=== PATIENT | male | born 1975 | race Caucasian/White ===

== ENCOUNTER → 2019-08-11 | Outpatient (CLI) | payer MEDICARE ==
[2019-08-11 13:28] LABS: Basophils # (A) 0.1 k/uL (0-0.2); Basophils % (A) 1 %; Eosinophils # (A) 0.3 k/uL (0-0.7); Eosinophils % (A) 3 %; HCT 48.5 % (39.0-53.0); HGB 16.9 gm/dL (13.0-17.5); Lymphocytes # (A) 2.6 k/uL (1.0-4.8); Lymphocytes % (A) 26 %; MCH 31.8 pg (25.0-35.0); MCHC 34.9 g/dL (31.0-37.0); MCV 91.2 fL (80.0-100.0); Mean Platelet Volume 7.4; Monocytes # (A) 0.9 k/uL (0-1.0); Monocytes % (A) 9 %; Neutrophils # (A) 5.9 k/uL (1.3-7.7); Neutrophils % (A) 59 %; Platelet Count 265 k/uL (150-450); RBC 5.32 m/uL (4.30-5.90); RDW 13.4 % (11.5-15.5)
[2019-08-11 13:36] LABS: Appearance,Urine Clear (Clear); Bilirubin,Urine Negative (Negative); Blood,Urine Negative (Negative); Color,Urine Yellow; Glucose,Urine (UA) Negative (Negative); Ketones,Urine Negative (Negative); Leukocyte Esterase,Urine Negative (Negative); Nitrite,Urine Negative (Negative); Protein,Urine Negative (Negative); Specific Gravity,Urine 1.009 (1.001-1.035)
--- NOTE | 2019-08-11 13:36 | XR ---
EXAMINATION TYPE: XR chest 2V DATE OF EXAM: 08/11/2019 COMPARISON: None HISTORY: 44-year-old male Z01.818, presurgical for a neck fusion TECHNIQUE: Frontal and lateral views FINDINGS: The cardiomediastinal silhouette, aorta, and pulmonary vasculature are within normal limits. Lungs an d pleural spaces are clear. IMPRESSION: No acute cardiopulmonary process.
[2019-08-11 13:50] LABS: African American GFR (CKD) >90 (>60 ml/min/1.73 sqM); Anion Gap 5 mmol/L; Blood Urea Nitrogen 9 mg/dL (9-20); Calcium 9.1 mg/dL (8.4-10.2); Carbon Dioxide 26 mmol/L (22-30); Chloride 105 mmol/L (98-107); Glucose 88 mg/dL (74-99); Non-African American GFR(CKD) >90 (>60 ml/min/1.73 sqM); Potassium 4.6 mmol/L (3.5-5.1); Sodium 136 mmol/L (137-145)
[2019-08-11 13:59] LABS: INR 0.9 (<1.2); Partial Thromboplastin Time 23.8 sec (22.0-30.0); Prothrombin Time 9.5 sec (9.0-12.0)
== END | disposition home or self-care (01) ==
LOC: LABPAT 12:43
PROVIDERS: ATTEND Orthopaedic Surgery Orthopaedic Surgery of the Spine
DX: Z01.818 Encounter for other preprocedural examination (principal); M48.02 Spinal stenosis, cervical region; M47.12 Other spondylosis with myelopathy, cervical region; U07.1 COVID-19
CPT/HCPCS: 80048; 85025; 85610; 85730; 81003; 71046; 36415; U0003

== ENCOUNTER → 2019-08-16 | Day surgery (SDC) | payer MEDICARE, OTHER ==
[2019-08-09 14:35] VITALS: BMI 31.8
[~2019-08-16] MED LIST: ACETAMINOPHEN TAB 325 MG TAB PO PRN; BENZOCAINE/MENTHOL LOZENG 1 EACH LOZENGE MUCOUS MEM PRN; DEXAMETHASONE SOD PHOSPHATE 10 MG/ML 1 ML VIAL ONE; GELATIN SPONGE,ABSORB (LARGE) 1 EACH SPONGE TOPICAL ONE; GLYCOPYRROLATE 0.2 MG/ML 2 ML VIAL ONE; HYDROcodone/APAP 5-325MG 1 EACH TAB PO ONE; HYDROcodone/APAP 5-325MG 1 EACH TAB PO PRN; HYDROcodone/APAP 5-325MG 1 EACH TAB PO STA; HYDROmorphone (PF) 1 MG/ML ONE; HYDROmorphone 0.5 MG/0.5 ML SYRINGE IVP PRN; HYDROmorphone 1 MG/ML 1 ML SYRINGE IVP PRN; LACTATED RINGERS 1,000 ML IV ONE; LACTATED RINGERS 1,000 ML IV SCH; LIDOCAINE 0.5%-EPI 1:200,000 50 ML VIAL SQ ONE; LIDOCAINE 1% INJ 10MG/ML (20 ML MDV) ONE; LISINOPRIL 10 MG TAB PO SCH; MIDAZOLAM 2 MG/2 ML VIAL ONE; NEOSTIGMINE 1 MG/ML 10 ML VIAL ONE; NON FORMULARY DRUG (Omeprazole 20 MG) PO SCH; ONDANSETRON 4 MG/2 ML VIAL IVP ONE; ONDANSETRON 4 MG/2 ML VIAL IVP PRN; PAROXETINE HCL 40 MG PO SCH; PARoxetine 10 MG TAB PO SCH; PROPOFOL 10 MG/ML 20 ML VIAL IV ONE; ROCURONIUM BROMIDE 10 MG/ML 5 ML VIAL IV ONE; SODIUM CHLORIDE 0.9% 1,000 ML IV SCH; SODIUM CHLORIDE 0.9% IRRIGATIO 1,000 ML IRRIGATION ONE; SUCCINYLCHOLINE CHLORIDE 100 MG/5 ML SYR IV ONE; THROMBIN (BOVINE) 5,000 UNIT VIAL TOPICAL ONE; ePHEDrine SULFATE/0.9% NACL/PF 50 MG/5 ML SYRINGE IV ONE; fentaNYL (PF) 50 MCG/ML 2 ML AMP IV PRN; fentaNYL (PF) 50 MCG/ML 2 ML AMP ONE
--- NOTE | 2019-08-16 10:16 | P.OP ---
Date of Procedure: 08/16/19 Preoperative Diagnosis: Cervical myelopathy, upper extremity weakness, cervical stenosis C3 4 C4 5, disc herniation C3 4 C4 5, degenerative disc disease, upper extremity radiculopathy Postoperative Diagnosis: Same Anesthesia: GETA Pathology: none sent Condition: stable Disposition: PACU Description of Procedure: BRIEF OPERATIVE NOTE Preoperative Diagnosis:Cervical myelopathy, upper extremity weakness, cervical stenosis C3 4 C4 5, disc herniation C3 4 C4 5, degenerative disc disease, upper extremity radiculopathy Postoperative Diagnosis:Cervical myelopathy, upper extremity weakness, cervical stenosis C3 4 C4 5, disc herniation C3 4 C4 5, degenerative disc disease, upper extremity radiculopathy Procedure: Anterior cervical decompression and fusion C3 4 C4 5 Placement of interbody graft C3 4 C4 5 Application of anterior cervical plate C3 4 5 Surgeon: Dr. Cordero Director Business Integration: Hamlet Anderson is present throughout the entire the case persistence during positioning, dissection, exposure, visualization, and all crucial elements of the case as well as closure. Anesthesia: General anesthesia Estimated blood loss: Approximately 50 mL Complications: None apparent Components implanted: K2M [place] anterior cervical plate system with a plate and 6 screws with Vikos interbody allograft bone graft 1 mL of DBX bone putty supplement the bone graft Disposition: To recovery room in good stable condition. OPERATIVE INDICATIONS The patient has had long-standing issues in their neck and upper extremities. He's been having worsening despite conservative treatment. He is noticing weakness in his upper extremities with his radiculopathy. He was worse on the right than the left. He was found to have significant stenosis with disc herniation at C3 4 and C4 5 on his MRI which quite well with his neck and upper extremity symptoms. He is having trouble with his regular activities in any sort of work. The patient has been through conservative treatment. We discussed various treatment options including surgery, and the patient wishes to proceed with surgery We discussed the risk, patient's alternatives and benefits of surgery including but not limited to, risk of bleeding risk of infection, risk of need for further surgery, risk of decreased, loss of motion, muscle function, malunion nonunion, hardware failure, nerve damage, paralysis, heart attack, and . The patient was also advised that there is current pandemic and there is no way to completely guarantee lack of exposure and he understood this issue. OPERATIVE SUMMARY After discussing all the risks, patient alternatives and benefits at length, the patient elected to proceed with surgical intervention, signed informed consent, and presented for their procedure. The patient was seen and examined in the preoperative holding area and the surgical site was marked. The patient was given antibiotics and brought to the operating room. The patient was positioned on the operating room table in a supine position being careful to pad any bony prominences and pressure points. The patient was sedated and intubated by anesthesia in standard fashion. Once the airway and C- spine were stabilized the patient's arms were padded and tucked at her side, with her shoulders gently taped. The head was placed in a donut pad with the neck in good neutral alignment and position. We were careful to maintain the patient's cervical spine and good neutral alignment and position throughout. The patient was prepped and draped in a normal standard fashion. An appropriate timeout and keystone protocol performed. We were able to proceed with the surgery. The local wound area was infiltrated with local anesthetic. An incision was made transversely approximately 2-1/2 cm over the appropriate levels at C4. Dissection was taken down subcutaneously to the level of the platysma which was split in line with its fibers. Dissection was taken with a carotid approach, with the trachea and esophagus medial and the carotid sheath laterally. We dissected down to the anterior surface of the vertebral bodies. Intraoperative x-ray was taken which showed a marker at the appropriate level of C4 5. With the appropriate level positively confirmed, we were able to proceed with discectomy at the appropriate levels starting at C3 4 and then moving C4 5. All of the operative levels were exposed appropriately. The patient had all their twitches back, and there was no evidence of recurrent laryngeal issue. The wound was copiously irrigated and suctioned dry as had been done periodically throughout the case. At the appropriate level/levels, I established an annulotomy with an 11 blade scalpel. A discectomy was performed with a combination of pituitary rongeurs, curettes, a high-speed bur, and Kerrison rongeurs. The posterior longitudinal ligament was taken down as were any posterior osteophytes. Note was made of obvious posterior osteophytes and thickening of the ligamentum with disc herniation causing compression. I was able to remove posterior osteophytes and the posterior longitudinal ligament as well as out extruded disc herniations. This gave good central and bilateral foraminal decompression. There is no evidence of any dural tear or leak. The endplates were prepared with a high-speed bur. With the endplates in good parallel position, I was able to size for the appropriate size interbody graft. The wound was irrigated and suctioned dry the graft was prepared and malleted into position. It had good alignment and position with the anterior surface flush with the anterior surface of the vertebral bodies. This was done similarly the appropriate levels first at C3 4 and then at C4 5. With the grafts intact, I was able to measure and contour and appropriate sized plate. The plate was positioned at the midline over the appropriate levels at C3 4 and 5. Screw holes were established with a hand drill and drill guide. Screws were placed in good alignment and position with excellent bony purchase. They were seated under the locking device. The construct was checked and found to be stable. Intraoperative x-ray was taken which showed good alignment and position of the implants at the appropriate levels. There was no evidence of any dural tear or leak. Good hemostasis was maintained. The wound was copiously irrigated and suctioned dry as had been done periodically throughout the case. The platysma was closed with absorbable suture. The subcutaneous tissue was closed. The subcuticular tissue was closed with absorbable suture. The wound was cleaned and dried and dressed appropriately. A soft cervical collar was placed appropriately. The patient was woken up by anesthesia, extubated, transferred back gently to their hospital bed and brought to the recovery room in good stable condition. The patient will be admitted to the hospital for appropriate postoperative care, medical management and monitoring. We will continue to follow them closely about the postoperative course.
[2019-08-16 10:23] VITALS: TEMP 97.8
--- NOTE | 2019-08-16 10:25 | XR ---
EXAMINATION TYPE: XR cervical spine 1V DATE OF EXAM: 08/16/2019 COMPARISON: NONE HISTORY: Cervicalgia. TECHNIQUE: Cervical spine one view FINDINGS: Exam is for surgical planning and not for diagnostic purposes. Metallic pointer is localize d over the C4-C5 disc space. IMPRESSION: As above.
--- NOTE | 2019-08-16 10:42 | XR ---
Cervical spine HISTORY: Hardware placement Comparison to prior exam same date earlier time Single lateral view of the cervical spine Patient is status post anterior cervical fusion and discectomy at C3-C5, there are intervertebral spa cing blocks. Cervical vertebral bodies show preserved height and alignment. Endotracheal tube and ove rlying cardiac leads noted incidentally. There are overlying artifacts. IMPRESSION: Orthopedic follow-up.
[2019-08-16 11:58] VITALS: BP 134/81; PULSE 99; RESP 16
== END | disposition home or self-care (01) ==
LOC: OR 06:59
PROVIDERS: ATTEND Orthopaedic Surgery Orthopaedic Surgery of the Spine
DX: M50.01 Cervical disc disorder with myelopathy, high cervical region (principal); M50.11 Cervical disc disorder with radiculopathy, high cervical region; M48.02 Spinal stenosis, cervical region; M47.12 Other spondylosis with myelopathy, cervical region; M47.22 Other spondylosis with radiculopathy, cervical region; M43.12 Spondylolisthesis, cervical region; G56.03 Carpal tunnel syndrome, bilateral upper limbs; E66.3 Overweight; G43.909 Migraine, unspecified, not intractable, without status migrainosus; I10 Essential (primary) hypertension; F32.9 Major depressive disorder, single episode, unspecified; J44.9 Chronic obstructive pulmonary disease, unspecified; K21.9 Gastro-esophageal reflux disease without esophagitis; F41.9 Anxiety disorder, unspecified; R00.0 Tachycardia, unspecified; K08.109 Complete loss of teeth, unspecified cause, unspecified class; F17.200 Nicotine dependence, unspecified, uncomplicated; Z68.31 Body mass index [BMI] 31.0-31.9, adult; Z79.899 Other long term (current) drug therapy; Z79.52 Long term (current) use of systemic steroids; Z79.1 Long term (current) use of non-steroidal anti-inflammatories (NSAID); Z97.3 Presence of spectacles and contact lenses; Z87.19 Personal history of other diseases of the digestive system; Z79.891 Long term (current) use of opiate analgesic
CPT/HCPCS: 86900; 86901; 86850; 72020; 22551; 22552; 22845; 20931; 20930; C1713 ×2; C1762 ×2; J2250; J1100; J2710; J0690; J2405; J2001; J3010; J1170 ×2; J0330; J2704

== ENCOUNTER → 2020-08-28 | Outpatient (CLI) | payer OTHER ==
--- NOTE | 2020-08-29 03:43 | MR ---
EXAMINATION TYPE: MR lumbar spine wo con DATE OF EXAM: 08/28/2020 COMPARISON: None HISTORY: LBP, numbness in right leg x 2 years Multiplanar multiecho imaging of the lumbar spine was performed with no contrast. Lumbar vertebra have normal alignment. Disc spaces are fairly normal. There is no compression fractur e. There is developmentally adequate spinal canal. The lumbar neural foramina appear widely patent. T here is no evidence of any significant disc bulging or herniation. There is no evidence of focal bone destruction. The sacroiliac joints appear intact. There is no lumbar paraspinal mass. IMPRESSION: Negative MR scan of the lumbar spine. Spine appears normal for age. No spinal stenosis or lumbar disc herniation.
== END | disposition home or self-care (01) ==
LOC: RADMRIMAIN 19:32
PROVIDERS: ATTEND Orthopaedic Surgery Orthopaedic Surgery of the Spine
DX: M54.5 Low back pain (principal); R20.0 Anesthesia of skin
CPT/HCPCS: 72148

== ENCOUNTER → 2022-10-02 | Outpatient (CLI) | payer OTHER | END | disposition home or self-care (01) | LOC: LABPAT 07:57 | PROVIDERS: ATTEND Orthopaedic Surgery | DX: Z01.812 Encounter for preprocedural laboratory examination (principal); Z22.322 Carrier or suspected carrier of Methicillin resistant Staphylococcus aureus; G95.9 Disease of spinal cord, unspecified | CPT/HCPCS: 36415 ==

== ENCOUNTER → 2022-10-09 | Outpatient (CLI) | payer OTHER ==
--- NOTE | 2022-10-12 18:14 | CT ---
EXAMINATION TYPE: CT cervical spine wo con CT DLP: 447.7 mGycm, Automated exposure control for dose reduction was used. DATE OF EXAM: 10/09/2022 4:20 PM COMPARISON: Cervical spine radiograph 10/12/2022 CLINICAL INDICATION:Male, 47 years old with history of M47.812 SPONDYLOSIS CERVICAL REGION,M43.22,M54 .2; [facility], Pre-surgical. Spondylosis cervical region. TECHNIQUE: Axial CT images from the skull base to the inferior aspect of T2 we obtained without intra venous contrast. Coronal and sagittal reformatted images were also reviewed. FINDINGS: Fracture: None. Osseous structures: Surgical changes from ACDF of C3-C5 with disc fusion cages. Hardware appears inta ct with appropriate alignment. Large anterior osteophyte bridging from the C6 vertebral body superior ly to the fusion hardware.. Vertebral alignment: Minimal grade 1 anterolisthesis of C2 on C3. Mild retrolisthesis of C5 on C6. Spinal canal/Neural Foramina: Small disc protrusion without significant central canal stenosis at C3- C4. Posterior disc osteophyte complex at C4-C5 resulting in mild central canal stenosis. There is sev ere left neural foraminal stenosis at this level due to uncovertebral joint hypertrophy. Posterior di sc osteophyte complex without significant central canal stenosis. No significant neural foraminal rhett nosis at this level. Neck soft tissues: Prevertebral soft tissues are within normal limits. Other: The airway is patent. Paraseptal and centrilobular emphysematous changes in the bilateral apic es. IMPRESSION: 1. No evidence of cervical spine fracture. 2. Mild multilevel degenerative disc disease. This is most pronounced at C4-C5 3. Postsurgical changes from ACDF C3-C5. Hardware appears intact. 4. COPD changes.
== END | disposition home or self-care (01) ==
LOC: RADCTMAIN 15:46
PROVIDERS: ATTEND Orthopaedic Surgery
DX: M50.321 Other cervical disc degeneration at C4-C5 level (principal); M47.812 Spondylosis without myelopathy or radiculopathy, cervical region; M43.22 Fusion of spine, cervical region; J44.9 Chronic obstructive pulmonary disease, unspecified
CPT/HCPCS: 72125

== ENCOUNTER 2022-10-12 07:40 | Inpatient (IN) | payer OTHER ==
--- NOTE | 2022-10-12 06:21 | P.HPOR ---
History of Present Illness H&P Date: 10/02/22 .D:Date: 10/02/22 : 12:42pm .T:Title: *[facility]... COPY... Date of :[birth year] R14 Allergies: Age: 47 year Height: 5'6" Weight: 188 lbs BP:/ BMI: 30.34 kg/m2 Occupation: Maintenance VAS: 6 CHIEF COMPLAINT: Cervical pain DOI: Chronic DOS: 07/2019 C3-[address] Cordero Duration of current treatment regiment:1 year HISTORY : Xrays New xrays taken in office Trauma or injury No Work-Related No Pain description Burning, sharp, throbbing , increasing . Location Posterior Patient notes that their pain radiates to bilateral upper extremities Activity Modification Yes Hand Dominance Left TREATMENTS COMPLETED: 6 weeks of PT completed? Month and Year of last PT date? No Physician directed home exercise completed? Patient has trialed the physician directed home exercise program 20m/day x3days/week without relief of their symptoms. Medications Yes;List: Flexeril Alternative interventions Chiropractic:No Massage therapy:Yes R.I.C.E:Yes Brace:No Injections Yes How many? 1 Did they help?No RFA:No SUBJECTIVE: Mr. Colunga returns to the office for a pre-operative appointment for his C2-T2 posterior cervical decompression and fusion. Since last visit patient reports he has had no changes to his symptoms. Patient continues to experience a burning and shooting type pain throughout the neck. In addition to his cervical pain he also continues to experience radiating pain down into the bilateral upper extremities, associated with numbness and tingling. The patient states that his right arm symptoms are more severe than the left at this time. Patient is still experiencing pressure headaches. Mr. Colunga's symptoms are exacerbated with any stretching of the upper extremities or over head activity, and due to this he notes that it is increasingly difficult for him to complete many of his daily tasks. The patient is having severe sleep disturbances as well. The patient states that his current symptoms are starting to significantly affect his overall quality of life. Regarding treatments, the patient has previously trialed physician directed home exercise, massage therapy, rest, at home ice/heat therapies, and epidural steroid injections within the lumbar spine. The patient reports that he has not experienced any significant or sustained relief from any conservative treatment efforts thus far. For their symptoms, the patient has been taking Flexeril. The patient experiences no relief when taking Flexeril. Otherwise the patient denies any f/c/sob/cp and ambulates independently today. HPI: Mr. Colunga returns to the office on 07/31/22 for a re-check on his neck pain. The patient continues to experience a burning and shooting type pain throughout the neck that has been ongoing for 2 years with an onset after his C3-[address] Cordero in 2019. The patient states that the first two years after his procedure he felt improvement, but his neck pain has gradually worsened following that time. In addition to his cervical pain he also experiences radiating pain down into the bilateral upper extremities, associated with numbness and tingling. The patient states that his right arm symptoms are more severe than the left at this time. Patient also reports an increase in pressure headaches since his last in office appointment on 07/03/2022. Overall the patient states that, other than the pressure headaches, his symptoms have remained relatively stable since his last in office appointment approximately 1 month ago. Mr. Colunga's symptoms are exacerbated with any stretching of the upper extremities or over head activity, and due to this he notes that it is increasingly difficult for him to complete many of his daily tasks. The patient is having severe sleep disturbances as well. The patient states that his current symptoms are starting to significantly affect his overall quality of life. Regarding treatments, the patient has previously trialed physician directed home exercise, massage therapy, rest, at home ice/heat therapies, and epidural steroid injections within the lumbar spine. The patient reports that he has not experienced any significant or sustained relief from any conservative treatment efforts thus far. For their symptoms, the patient has been taking Flexeril and ALA. The patient experiences no relief when taking Flexeril, and some relief when taking ALA. Otherwise the patient denies any f/c/sob/cp and ambulates independently today. Mr. Colunga presents to the office on 07/03/22 for an evaluation of their cervical pain. Patient reports a increased burning, shooting, stabbing cervical pain ongoing for 2 years with an onset after his C3-C5 ACDF performed by Dr. Cordero in 2019. Patient states the first two years after procedure he felt he was getting better. Patient reports he did follow through with post-op appointments, but did not feel he was being heard when he felt his symptoms started increasing again. In addition to their cervical pain, they do report that it radiates into the bilateral upper extremities, associated with numbness and tingling. Patient also reports an increase in pressure headaches, scalp pain, and foggy thinking. Patient states his aunt has MS and he believes he is going to need to be worked up as well. Overall the patient has seen a progressive increase in symptoms since their onset. Mr. Colunga symptoms are exacerbated with any stretching of his upper extremities or over head activity, due to this they notes that it is increasingly difficult for Mr. Colunga to complete many of their daily tasks. Patient is having severe sleep disturbances as well due to their ongoing pain and associated symptoms. Regarding treatments, the patient has previously trialed the above listed modalities. Patient denies trialing any other modalities at this time. For their symptoms, the patient has been taking Tylenol and THC. Otherwise the patient denies any f/c/sob/cp and ambulates indepe ndently. The patients' past social, medical, family, surgical history, as well as review of systems, have been reviewed. Please refer to the Neurosurgery History and Physical form that has been scanned in to our electronic medical record system. 14 points review of systems completed and as stated in HPI, all other systems reviewed are negative. Social History:Reviewed, see appropriate section of the chart for details. P3 Family History:Reviewed, see appropriate section of the chart for details. P2 Past Medical History:Reviewed, see appropriate section of the chart for details. Z3Ormvuvc Medications: Rx:cyclobenzaprine 5 mg tablet Ref: 0 P1 PHYSICAL EXAMINATION: General:Awake, alert, appropriate for age, in no acute distress. HEENT:No unusual neck masses around region of lateral neck triangle, thyroid, supraclavicular groove Heart:Regular rate and rhythm, normal S1, S2 and no murmur/gallop. Lungs:Clear to auscultation bilaterally with no use of accessory muscles. Extremities:Skin warm and dry without acute lesions, coloration, temperature, skin intact, no tenderness or erythema Integument: Hairy patches:ABSENT Dorsal skin dimples:ABSENT Cafe au lait spots:ABSENT Surgical incisions:well healed cervical Palpation: Please see Pain drawing on Intake sheet for further detail. Midline spinal tenderness: No E6 Cervical Tenderness: yes E6 Paralumbar tenderness: No E6 Parathoracic tenderness: No E6 Buttocks tenderness: No E6 Sacroilliac Tenderness: No POSTURAL and MUSCULO-SKELETAL EVALUATION: Coronal Balance:NEUTRAL Recumbent testing:Patient isable to lay flat on back Sagittal Balance:NEUTRAL Shoulder Profile:LEVEL Pelvic Girdle:LEVEL Neck ROM:RESTRICTED Lumbar ROM:UNRESTRICTED Shoulder ROM:Symmetrical Hip ROM:Symmetrical Knee ROM:Symmetrical Hands:Normal appearance, symmetrical Feet:Normal appearance, Symmetrical VASCULAR STATUS : LEFT RIGHT Wrist Pulses INTACT INTACT Pedal Pulses (Dors. pedis & post.tibialis) INTACT INTACT Color NORMAL NORMAL Edema Absent Absent NEUROLOGIC EXAMINATION: Mental Status:Awake and alert, fully oriented, with normal attention, concentration and memory, and fluent, appropriate speech. Cranial Nerves: I: Olfactory not tested. II: Visual acuity normal, no visual field deficit noted with confrontation. III,IV: Normal pupillary reflexes & intact extraocular movements without nystagmus. V,: Intact symmetrical facial sensation. VII: Intact symmetrical facial motor movement VIII: Hearing intact. IX,X: Intact gag, swallow, & normal voice. XI: Sternocleidomastoid, trapezius function intact. XII: Tongue midline with normal movements. L'hermitte's Sign: Negative / absent Spurling'Sign: Absent bilaterally. Cubital percussion test: Absent bilaterally. Laurent-Tinel sign - Carpal region: Absent bilaterally. Straight Leg Raising: Absent bilaterally. Crossed straight leg raise: negative O8 MOTOR EXAM (0-5/5, N/T Muscle appearance: Symmetrical, without signs of atrophy or dystrophy UPPER EXTREMITY RIGHT LEFT Shoulder Abduction 4/5 4/5 Biceps 4/5 4/5 Triceps 4/5 4/5 Wrist Extension 4/5 4/5 Hand Intrinsic 4/5 4/5 Accounts Payable Processor 4/5 4/5 Hand and finger dexterity intact bilaterally? yes Disdiadochokinesis examination negative bilaterally? yes LOWER EXTREMITY RIGHT LEFT Hip Flexion 5/5 5/5 Knee Extension 4/5 4/5 Knee Flexion 5/5 5/5 Dorsiflexion 5/5 5/5 Plantarflexion 5/5 5/5 EHL 5/5 5/5 FHL 5/5 5/5 Toe heel walk / heel-toe walk intact while maintaining satisfactory balance? yes Squatting/straightening w/o assistance to a min of 60 degree knee flexion? yes Single leg stance:Intact Trendelenburg sign negative bilaterally REFLEXES(0-4/2, NT)Upper ExtremityLower Extremity Right 3 2 Left 3 2 Pathological Reflexes RIGHT LEFT Laurent's PRESENT Absent Clonus Absent Absent Babinski Absent Absent Sensory system (0-4, N/T) Test type RU RICHARD RL LL Joint-Position 2 2 2 2 Vibration 2 2 2 2 Pain & LT sense 2 2 2 2 Dermatomal Deficit: Global Global None None Gait and Functional Evaluation: Ambulatory aids:Independent Romberg's test:Intact bilaterally Steady Gait RADIOGRAPHIC STUDIES: XRay Cervical multiview (Lateral, Flexion, Extension, AP, Oblique) [address] [facility] on 07/03/22: Reviewed with the patient today. Mild spondylitic changes with preserved alignment. Hardware noted from previous surgery C3-C5. Plate and screws are intact, no loosening or migration. Adjacent segment disease noted C5-C6. Left foraminal stenosis C3-C4. No acute osseous abnormalities. [facility] CervicalSpine: * Post surgical changes C3-5 with possible pseudoarthrosis C3-4. ASD C5-6 and C6-7 Stenosis moderate to severe, anterior and posterior No fracture No lesions IMPRESSION: It was my pleasure to have seen and examined Martinez. I reviewed the patient's clinical syndrome, physical findings, and imaging studies during the appointment today. It is my impression that the patient has a diagnosis of. 1. C2-T2 spondylosis and stenosis 2. 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 Possible pseudoarthrosis 4. Cervical myelopathy 5. S/P C3-5 ACDF I outlined the natural course history without intervention and various interventional options. PLAN: Based on my findings I suggest the following course of action: -CT of the neck w/o contrast for surgical planning -I discussed treatment options with the patient, including operative and non- operative options, and they have elected to proceed with the following surgical procedure: C2-T2 posterior cervical decompression and fusion The indications, risks, benefits, and alternatives to surgery were discussed with the patient and family at length. Specifically (but not limited to) the risks of infection, stiffness, recurrence of symptoms, need for revision surgery, local numbness, neurovascular injury, and blood clots were discussed. The patient's questions were answered. - I discussed with the patient that he will need to remain off of work 3 months post operation. Spine Surgery Risk Review Mr. Colunga is presenting for evaluation of neck pain. It was my pleasure to have seen and examined Mr. Colunga. In our visit today we have had a chance to go over subjective complaints, physical examination findings and treatments including the natural course history without intervention and various interventional options. The patients imaging demonstrates: XRay Cervical multiview (Lateral, Flexion, Extension, AP, Oblique) [address] [facility] on 07/03/22: Reviewed with the patient today. Mild spondylitic changes with preserved alignment. Hardware noted from previous surgery C3-C5. Plate and screws are intact, no loosening or migration. Adjacent segment disease noted C5-C6. Left foraminal stenosis C3-C4. No acute osseous abnormalities[facility] CervicalSpine: * Post surgical changes C3-5 with possible pseudoarthrosis C3-4. ASD C5-6 and C6-7 Stenosis moderate to severe, anterior and posterior No fracture No lesions On physical exam, Mr. Colunga demonstrates: continues to experience a burning and shooting type pain throughout the neck that has been ongoing for 2 years with an onset after his C3-[address] Cordero in 2019. The patient states that the first two years after his procedure he felt improvement, but his neck pain has gradually worsened following that time. In addition to his cervical pain he also experiences radiating pain down into the bilateral upper extremities, associated with numbness and tingling. The patient states that his right arm symptoms are more severe than the left at this time. Patient also reports an increase in pressure headaches since his last in office appointment on 07/03/2022. Overall the patient states that, other than the pressure headaches, his symptoms have remained relatively stable since his last in office appointment approximately 1 month ago. Mr. Colunga's symptoms are exacerbated with any stretching of the upper extremities or over head activity, and due to this he notes that it is increasingly difficult for him to complete many of his daily tasks. The patient is having severe sleep disturbances as well. The patient states that his current symptoms are starting to significantly affect his overall quality of life. I have explained to the patient that as their condition progresses it will cause further neurological deficits and eventual paralysis. Based on the patients imaging, physical exam, and the rapid progression and disabling nature of their symptoms, at this time I recommend surgery in the form of a: C2-T2 PCDF. I discussed the risk and benefits of this procedure at length with Mr. Colunga. The patient agreed to considered pursuing the procedure above mentioned . Prior to surgery, she should follow up with her PCP (Cardio, ID, IM etc) for clearance. Questions were invited and answered, and the patient wishes to proceed as outlined below. Currently, I am recommendin.C2-T2 PCDF 2.Follow up with PCP for surgical clearance 3.Review of surgical risks and benefits as well as an educational packet on the proposed surgical procedure. Risks: All surgical procedures come with inherent risks, including those related to positioning, anesthesia, intraoperative findings, and postoperative complications. It is important to understand that surgery does not come with any guarantee of a successful outcome as complications and adverse events are always possible. The patient was given a handout in office today discussing the surgical procedure and risks associated with the intervention, both of which were discussed with the patient. These risks include but are not limited to the following: * Experiencing same, different or even worse symptoms in back, neck, arms, or legs compared to before surgery. Requiring further surgery or other forms of treatment presently or at some time in the future at same or other levels of the intended spine surgery. On an extreme but fortunately relatively rare basis severe complication such as blindness, stroke, heart attack, temporary and/or permanent nerve injury, paralysis, coma, or may occur, sometimes without known explanation. Surgical complications may include but are not limited to risk of infection, fluid accumulation in the surgical dissection site, including a seroma or hematoma, that requires additional surgery, wound drainage, bleeding, new numbness or weakness, vision changes/loss, spinal fluid leakage, non-healing and/or infected incision, headaches, difficulty or inability to swallow, hoarseness, hemopneumothorax, pneumothorax, impotence, retrograde ejaculation, vaginal dryness; injury to nerves, spinal cord, blood vessels, lymphatics or other vital organs (i.e., bowel injury, injury to the great vessels); heterotopic bone formation; complications related to the hardware such as screws, rods, cages including misplaced hardware, device failure, instrumentation at the wrong spine level, hardware fracture/breakage, or hardware loosening; vertebral failure of the spinal column above or below the newly placed hardware; retained surgical instrumentations or devices and the need for further surgery. * Medical risks of the planned spine surgery include but are not limited to generalized Infections to the whole body or local areas outside of the surgical site (sepsis), heart attack, bleeding, anaphylaxis, meningitis, seizure, epilepsy, hearing loss, burn chakraborty, laceration of the head or other areas of the body, bruising, hypersensitivity of the skin, bladder over distension; allergic reaction; shoulder injury related to positioning; fat, blood and air clots to other areas of the body like heart, lungs, brain; failure of internal organs such as lungs, kidneys, liver and excessive bleeding. If blood transfusions are necessary, note that transfusions may cause intolerance reactions such as anaphylaxis or other complex reactions. Despite best efforts, the results of spine surgery might not heal in terms of bone, soft tissues such as skin, fascia, ligaments, and joints. Additionally, in order to achieve best possible results, spine surgery may be carried out beyond the initially planned levels and involve decompression, fusion including insertion of hardware at levels other than the original intended area of surgical interest change some portions of the procedure in order to ensure the best possible outcomes. With spine surgery and spinal fusion, there are different off label uses of instrumentation (devices, implants and hardware) as well as biological substances (bone morphogenic proteins, demineralized bone matrix) as well as using extra bone from allograft sources (i.e. cadaver bone) or autograft (iliac crest bone, ribs, or the spine itself). The patient has been given information about these practices and their inherent risks and benefits. [facility] is an educational center that serves as a training facility for neurosurgical and orthopedic [employer] and Nursing students. Physician assistants are medically trained surgical providers who function in the outpatient, inpatient, and operating room setting under the direct supervision of the attending surgeon. [facility] has multiple operating rooms with single and overlapping rooms running daily. They currently function under the required guidelines as produced by the [facility] with regards to the overlapping rooms and will continue to comply with changes to this policy as they occur. The requirements include and are complied with as follows: (1) the critical portions of the overlapping rooms will not occur at the same time, (2) the attending physician will be physically present during the critical portions of the procedure and immediately available during the entire case, and (3) a back-up attending is designated should the primary attending not be immediately available. The patient has had a chance to review all the listed information, has been given print outs detailing this information, and has had all his/her questions answered to their satisfaction. It was my pleasure to have seen and examined Mr. Colunga. In our visit today we have had a chance to go over my understanding of our patient's current condition, the natural course history without intervention and various interventional options. Questions were invited and answered, and the patient wishes to proceed as outlined above. I have seen and examined the patient for 25 minutes and we have spent more than 50% of the time in repeat and detailed counseling about the patient's condition, its natural course history with out and as much as can be predicted with surgery and re-review of various surgical treatment options. In conclusion, Mr. Colunga requested we proceed with the above suggested surgery and are willing to accept risks and limitations of the suggested surgery as nature of the disease process and our best attempts at treatment for the condition. Thank you again for allowing us to be part of your patient's care. Please don't hesitate to contact me if you have any further questions. Signed and authenticated by: [employer] P:\\\\ ppart\\\\Files\\\\[id number] \\d [facility]imally Invasive Spine Surgery [address] [facility], [address] [address] Follow-up: DEL Post procedure 1month 6wks 3 months 6 months 1 year Patient Education: (Informational booklet, instructions, etc) given at today's appointment: DEL Yes .ED:Patient Education: Y Medications Reviewed: YES In our visit today Mr. Colunga and I have had a chance to go over my understanding of the patient's current condition, the natural course history without interv ention and various interventional options. Questions were invited and answered, and the patient wishes to proceed as outlined above. I will be sure to keep you updated afterMrMalka Colunga returns here for further follow-up. Thank you again for your referral. Please do not hesitate to contact me if you have any further questions. Signed and authenticated by: LAMAR Maier [facility] [address], [place] [address] [place] [id number] This message is confidential, intended only for the named recipient(s) and may contain information that is privileged or exempt from disclosure under applicab le law. If you are not the intended recipient(s), you are notified that the dissemination, distribution or copying of this information is strictly prohibited. If you received this message in error, please notify the sender then delete this message. Patient verbalizes understanding of the information discussed. The above note was initiated by Rakesh Simmons, physician recording elementary assistant teacher for Dr. Selvin Hwang. This note has been reviewed by Dr. Hwang, who has made his personal changes and impressions for this document. CC: Carlos Marquis MD Past Medical History Past Medical History: COPD, GERD/Reflux, Hypertension, Musculoskeletal Disorder Additional Past Medical History / Comment(s): NOT TAKING MEDS FOR HYPERTENSION AND GERD. migraine headaches, numbness & tingling both arms & hands, pain up right side of neck into head History of Any Multi-Drug Resistant Organisms: None Reported Past Surgical History: No Surgical Hx Reported Additional Past Surgical History / Comment(s): 08/16/19 cervical fusion. pain procedures Past Anesthesia/Blood Transfusion Reactions: No Reported Reaction, Family History of Problems w/ Anesthesia Additional Past Anesthesia/Blood Transfusion Reaction / Comment(s): brother slow to wake up Past Psychological History: Anxiety Smoking Status: Current every day smoker Past Alcohol Use History: Rare Additional Past Alcohol Use History / Comment(s): 1ppd since teens Past Drug Use History: Marijuana Additional Drug Use History / Comment(s): occasional use - Past Family History Father Family Medical History: Cancer Medications and Allergies Home Medications Medication Instructions Recorded Confirmed Type Cyclobenzaprine [Flexeril] 5 mg PO HS 10/06/22 10/06/22 History Allergies Allergy/AdvReac Type Severity Reaction Status Date / Time No Known Allergies Allergy Verified 08/16/19 07:10 Physical Examination Osteopathic Statement: *. No significant issues noted on an osteopathic structural exam other than those noted in the History and Physical/Consult.
[~2022-10-12 07:40] MED LIST changes: -ACETAMINOPHEN TAB 325 MG TAB PO PRN; +ACETAMINOPHEN TAB 500 MG TAB PO PRN; -BENZOCAINE/MENTHOL LOZENG 1 EACH LOZENGE MUCOUS MEM PRN; -DEXAMETHASONE SOD PHOSPHATE 10 MG/ML 1 ML VIAL ONE; +GABAPENTIN 300 MG CAP PO PRN; -GELATIN SPONGE,ABSORB (LARGE) 1 EACH SPONGE TOPICAL ONE; -GLYCOPYRROLATE 0.2 MG/ML 2 ML VIAL ONE; -HYDROcodone/APAP 5-325MG 1 EACH TAB PO ONE; -HYDROcodone/APAP 5-325MG 1 EACH TAB PO PRN; -HYDROcodone/APAP 5-325MG 1 EACH TAB PO STA; -HYDROmorphone (PF) 1 MG/ML ONE; -HYDROmorphone 0.5 MG/0.5 ML SYRINGE IVP PRN; -HYDROmorphone 1 MG/ML 1 ML SYRINGE IVP PRN; -LACTATED RINGERS 1,000 ML IV ONE; -LACTATED RINGERS 1,000 ML IV SCH; -LIDOCAINE 0.5%-EPI 1:200,000 50 ML VIAL SQ ONE; -LIDOCAINE 1% INJ 10MG/ML (20 ML MDV) ONE; -LISINOPRIL 10 MG TAB PO SCH; -MIDAZOLAM 2 MG/2 ML VIAL ONE; -NEOSTIGMINE 1 MG/ML 10 ML VIAL ONE; -NON FORMULARY DRUG (Omeprazole 20 MG) PO SCH; -ONDANSETRON 4 MG/2 ML VIAL IVP ONE; -PAROXETINE HCL 40 MG PO SCH; -PARoxetine 10 MG TAB PO SCH; -PROPOFOL 10 MG/ML 20 ML VIAL IV ONE; -ROCURONIUM BROMIDE 10 MG/ML 5 ML VIAL IV ONE; -SODIUM CHLORIDE 0.9% 1,000 ML IV SCH; -SODIUM CHLORIDE 0.9% IRRIGATIO 1,000 ML IRRIGATION ONE; -SUCCINYLCHOLINE CHLORIDE 100 MG/5 ML SYR IV ONE; -THROMBIN (BOVINE) 5,000 UNIT VIAL TOPICAL ONE; +TRANEXAMIC 1,000 MG/100ML-NACL 1,000 MG in SALINE 1 100ML.BAG IVPB PRN; -ePHEDrine SULFATE/0.9% NACL/PF 50 MG/5 ML SYRINGE IV ONE; -fentaNYL (PF) 50 MCG/ML 2 ML AMP IV PRN; -fentaNYL (PF) 50 MCG/ML 2 ML AMP ONE
[2022-10-12] MEDS ORDERED: LIDOCAINE 1% (10MG/ML) FOR IV START INTRADERMA PRN (07:44)
[2022-10-12] MEDS ORDERED: ONDANSETRON 4 MG/2 ML VIAL IVP ONE (07:44)
[2022-10-12] MEDS ORDERED: droPERidol 5 MG/2 ML VIAL IVP PRN (07:44)
[2022-10-12] MEDS ORDERED: DEXAMETHASONE SOD PHOSPHATE 4 MG/ML 1 ML VIAL IV ONE (07:44)
[2022-10-12] MEDS: LACTATED RINGERS 1,000 ML IV SCH (08:41)
[2022-10-12] MEDS ORDERED: ROCURONIUM 10 MG/ML (5 ML VIAL) IV ONE (09:45)
[2022-10-12] MEDS ORDERED: MIDAZOLAM 2 MG/2 ML VIAL ONE (09:45)
[2022-10-12] MEDS ORDERED: fentaNYL (PF) 50 MCG/ML 2 ML AMP ONE (09:45)
[2022-10-12] MEDS ORDERED: PROPOFOL 10 MG/ML 20 ML VIAL IV ONE (09:45)
[2022-10-12] MEDS ORDERED: NEOSTIGMINE 1 MG/ML 10 ML VIAL ONE (09:45)
[2022-10-12] MEDS ORDERED: SUCCINYLCHOLINE CHLORIDE 200 MG/10 ML VIAL IV ONE (09:45)
[2022-10-12] MEDS ORDERED: LIDOCAINE 2% INJ 20 MG/ML (2 ML VIAL) ONE (09:45)
[2022-10-12] MEDS ORDERED: TRANEXAMIC 1,000 MG/100ML-NACL PREMIX BAG ONE (09:45)
[2022-10-12] MEDS ORDERED: GLYCOPYRROLATE 0.2 MG/ML 2 ML VIAL ONE (09:45)
[2022-10-12] MEDS ORDERED: KETAMINE 10 MG/ML 20 ML VIAL ONE (09:45)
[2022-10-12] MEDS ORDERED: LACTATED RINGERS 1,000 ML IV ONE ×2 (09:50→12:15)
[2022-10-12] MEDS ORDERED: GELATIN SPONGE,ABSORB (LARGE) 1 EACH SPONGE TOPICAL ONE (10:42)
[2022-10-12] MEDS ORDERED: GENTAMICIN 80 MG in SODIUM CHLORIDE 0.9% IRRIGATIO 3,000 ML IRRIGATION ONE (10:42)
[2022-10-12] MEDS ORDERED: ceFAZolin 3,000 MG in SODIUM CHLORIDE 0.9% IRRIGATIO 3,000 ML IRRIGATION ONE (10:42)
[2022-10-12] MEDS ORDERED: THROMBIN (BOVINE) 5,000 UNIT VIAL TOPICAL ONE (10:43)
[2022-10-12] MEDS ORDERED: VANCOMYCIN 1,000 MG VIAL MISCELLANE ONE ×2 (10:43)
[2022-10-12] MEDS ORDERED: HYDROcodone/APAP 5-325MG 1 EACH TAB PO PRN (13:16)
[2022-10-12] MEDS ORDERED: SENNOSIDES-DOCUSATE SODIUM 1 EACH TAB PO PRN (13:16)
[2022-10-12] MEDS ORDERED: HYDROmorphone 0.5 MG/0.5 ML SYRINGE IVP PRN (13:16)
[2022-10-12] MEDS ORDERED: MAGNESIUM HYDROXIDE 2,400 MG/30 ML CUP PO PRN (13:16)
--- NOTE | 2022-10-12 13:21 | P.OP ---
Date of Procedure: 10/12/22 Preoperative Diagnosis: 1. C2-3, C5-6, C6-7 SPONDYLOSIS, ADJACENT SEGMENT DISEASE S/P C3-5 ACDF 2. CERVICAL STENOSIS, MODERATE TO SEVERE 3. B/L UE RADICULOPATHY AND WEAKNESS 4. NECK PAIN Postoperative Diagnosis: 1. C2-3, C5-6, C6-7 SPONDYLOSIS, ADJACENT SEGMENT DISEASE S/P C3-5 ACDF 2. CERVICAL STENOSIS, MODERATE TO SEVERE 3. B/L UE RADICULOPATHY AND WEAKNESS 4. NECK PAIN Procedure(s) Performed: 1. C2-T1 POSTERIOLATERAL STABILIZED FUSION (22452, [id number]) 2. C2-T1 SEGMENTAL INSTRUMENTATION (31441) 3. C2-7 DECOMPRESSIVE LAMINECTOMY (94403, [id number]) USE OF IONM Implants: -JOANIE POSTERIOR CERVICAL SYSTEM -MAGNATOS Anesthesia: GETA Surgeon: Selvin Hwang Bellperson #1: Chevy Norris (WAS PRESENT AND ASSISTED WITH ALL ASPECTS OF THE CASE FROM POSITION TO CLOSURE) Estimated Blood Loss (ml): 150 IV fluids (ml): 1,000 Urine output (ml): 200 Pathology: none sent Condition: stable Disposition: PACU Indications for Procedure: Mr. Colunga is presenting for evaluation of neck pain. It was my pleasure to have seen and examined Mr. Colunga. In our visit today we have had a chance to go over subjective complaints, ph ysical examination findings and treatments including the natural course history without intervention and various interventional options. The patients imaging demonstrates: XRay Cervical multiview (Lateral, Flexion, Extension, AP, Oblique) 6 views taken at [facility] on 07/03/22: Reviewed with the patient today. Mild spondylitic changes with preserved alignment. Hardware noted from previous surgery C3-C5. Plate and screws are intact, no loosening or migration. Adjacent segment disease noted C5-C6. Left foraminal stenosis C3-C4. No acute osseous abnormalities. [facility]ine: * Post surgical changes C3-5 with possible pseudoarthrosis C3-4. ASD C5-6 and C6-7 Stenosis moderate to severe, anterior and posterior No fracture No lesions On physical exam, Mr. Colunga demonstrates: continues to experience a burning and shooting type pain throughout the neck that has been ongoing for 2 years with an onset after his C3-[address] Cordero in 2019. The patient states that the first two years after his procedure he felt improvement, but his neck pain has gradually worsened following that time. In addition to his cervical pain he also experiences radiating pain down into the bilateral upper extremities, associated with numbness and tingling. The patient states that his right arm symptoms are more severe than the left at this time. Patient also reports an increase in pressure headaches since his last in office appointment on 07/03/2022. Overall the patient states that, other than the pressure headac hes, his symptoms have remained relatively stable since his last in office appointment approximately 1 month ago. Mr. Colunga's symptoms are exacerbated with any stretching of the upper extremities or over head activity, and due to this he notes that it is increasingly difficult for him to complete many of his daily tasks. The patient is having severe sleep disturbances as well. The patient states that his current symptoms are starting to significantly affect his overall quality of life. I have explained to the patient that as their condition progresses it will cause further neurological deficits and eventual paralysis. Based on the patients imaging, physical exam, and the rapid progression and disabling nature of their symptoms, at this time I recommend surgery in the form of a: C2-T2 PCDF. I discussed the risk and benefits of this procedure at length with Mr. Colunga. The patient agreed to considered pursuing the procedure above mentioned . Prior to surgery, she should follow up with her PCP (Cardio, ID, IM etc) for clearance. Questions were invited and answered, and the patient wishes to proceed as outlined below. Currently, I am recommendin.C2-T2 PCDF Description of Procedure: C2-T1 DECOMPRESSION AND FUSION The patient was seen and examined in the preoperative area. All preoperative protocols were followed. Informed consent was obtained risks and benefits of the procedure were discussed at length. Risks including bleeding infection damage to the surrounding tissue and risk of reoperation were discussed with the patient. Risk of anesthesia up to and including was a discussed with the patient. These are outlined in the risk review. They were willing to accept these risks and all of the risks of surgery. The patient was given a weight- based dose of antibiotics in the form of 2 g Ancef. The patient was seen and evaluated by the anesthesia team who deemed them fit for surgery. The site was marked, the patient was willing to proceed with the procedure. The patient was transferred to the operative suite by the Department of anesthesia. They were then drifted off to sleep by the department anesthesia and GETA was performed. The patient tolerated this well. pre-positioning motors were obtained.Tineo in place from the floor. Once confirmation of lines and ventilation Granby head clamp was placed on the patient and secured and the patient was transferred to a [prone Checo table very carefully] with the Granby head of cytogenetics the head was secured and placed into an optimal position x- ray confirmed this position. Post-positioning motors remained stable. All bony prominences including wrists, elbows, axilla, chest, hips, and thighs, and feet were padded very well. Special attention was paid to the genitalia and these were padded accordingly. SCDs were placed on bilateral lower extremities and were connected. Arms were well padded and placed tucked at his side thumbs down. Shoulders were gently taped down to the table.. Once in position, again we confirmed good ventilation capabilities and that lines were running appropriately. The patient's posterior cervical spine was then exposed. 1010s were placed outlining the incision site. Standard alcohol was used to clean the incision site and allowed to dry. C-arm was used to biomark the patient and confirm level for incision which was marked with a skin marker. Operative briefing was performed with all teams and everyone in agreement to proceed. The patient was then prepped and draped in a normal sterile fashion. Timeout was then performed and all parties were in agreement with the procedure to be performed. Midline skin incision made over the previously biomarked area and dissection taken down midline to the SP of C2-T1. Subperiosteal dissection taken out over the lamina and lateral masses of C2-C7 and TVP of T1. Once exposure complete, wound was irrigated and c arm brought in for imaging. A penfield 4 was used to bluntly dissect the medial border of C2 pedicle and placed for guidance. C arm used and jae hole made for starting point. C2 pedicle was then drilled in 2mm increments to 20 mm using a ball tip feeler in between each drill session to make sure within the 4 sims with a good bottom. once this was accomplished a screw was selected and placed under lateral fluoroscopic guidance. Screw had good purchase. This was then repeated on the contralateral side. AP confirmed good placement of both screws. We then proceeded to the T1 screws bilaterally jae was used to remove the facet joint of C7 and to create a starting point for T1. Pedicle finder was then passed into T1 and imaging taken to confirm placement this was then removed and a tap placed ball-tipped probe was then placed and 4 sims of pedicle fell with good bottom. Screw was then measured and placed into T1. This is repeated on the contralateral side. The wound was then irrigated. Lateral mass screws were then drilled to 14 mm and placed at each level. Each had a good bite. Rods were then sized and selected and cut to length. They were bent accordingly and lordosis. There is secured into C2 bilaterally and then sequentially her diet reduced into T1. All set screws were placed and were then final tightened and the position. Laminectomy was then performed using Ronjair followed by jae bilateral laminotomies and laminectomy was performed using high-speed bur Kerrison Ronjair and up-biting curette. Motors were run before and after decompression and they remain stable. Good pulsations of the cord were noted after decompression. The wound was then copiously irrigated with 3 L of Ancef irrigation followed by 3 L of gentamicin irrigation followed by 3 L of normal sterile saline. Facet joints were drilled at each level to allow for fusion Surgicel was placed over the dura. MagnetOs were placed in the posterior lateral gutters along with Gricelda and DBM. This was impacted into position for fusion. 2 g of powdered bank was not placed deep within the wound and a deep drain was placed. A cross-link was placed and final tightened. We then proceeded with layered closure first in the deep fascia with #1 PDS then in the middle fascia with 0 Vicryl superficial fascia was closed with 2-0 Vicryl and skin closed with skin jay. The wound edges approximated very well. The wound was then cleaned and dressed sterilely with an operative foam dressing 4 x 4 and Tegaderm. The drain had good suction. The patient was placed in a hard cervical collar. The patient was transferred back to their hospital bed atraumatically. Walton head clamp was removed and pin sites were clear. [Drain continued to hold suction and were in good position]. Patient was then awakened and extubated by the department of anesthesia having tolerated the procedure very well with no complications. They were transferred to the postoperative care unit in stable condition.
--- NOTE | 2022-10-12 13:40 | P.CONS ---
History of Present Illness - Reason for Consult Consult date: 10/12/22 Medical Management Requesting physician: Selvin Hwang - History of Present Illness History of Presenting Illness: Patient is a very pleasant 47-year-old male with a past medical history of hypertension (no longer on any medications), COPD with continued nicotine dependence, GERD, cannabinoid use disorder, and osteoarthritis. He is currently admitted under orthospine surgery team with Dr. Hwang status post elective C2 through T12 posterior cervical decompression and fusion. We have been consulted for medical management throughout patient's hospitalization. Patient seen and fully evaluated at bedside. Hard cervical collar in place along with JEAN-PIERRE drain. Patient currently reports controlled postoperative pain at this time. He denies having any numbness/tingling/weakness in his upper or lower extremities. Patient reports he has had ice chips and water since surgical procedure and is tolerating well. Tineo catheter is in place. Patient denies having any postoperative nausea or vomiting, dizziness/lightheadedness, chest pain or palpitations, shortness of breath, or any other complaints at this time. Patient denies history of DVTs or PE in the past. Review of systems: Pertinent positives and negatives as discussed in HPI, a complete review of systems was performed and all other systems are negative. Physical exam: Vital signs reviewed and stable. General: Nontoxic, no distress and appears stated age. Derm: Skin warm and dry, normal coloration for ethnicity. Head: Atraumatic, normocephalic and symmetric. Hard cervical collar in place a long with JEAN-PIERRE drain. Eyes: EOMs intact, no lid lag, and anicteric sclera Mouth: no lip lesions, mucus membranes moist Cardiovascular: regular rate and rhythm with normal S1S2, no murmur, positive posterior tibial pulses bilaterally, and cap refill < 2 seconds. Lungs: Respirations even, regular, and unlabored on room air. Lungs slightly diminished bilaterally with soft upper expiratory wheezes, no rhonchi, no rales, no crackles. No accessory muscle usage. Abdominal: soft, nontender to palpation, no guarding, no appreciable organomegaly Ext: ROM intact. No gross muscle atrophy, no edema, no contractures Neuro: Speech clear, face symmetrical and CN II-XII grossly intact with no noted focal neuro deficits Psych: Alert and oriented to person, place, time, and situation. Appropriate and pleasant affect. Assessment and Plan of Care: Status post C2 through T12 posterior cervical decompression and fusion Management per primary admitting orthospine surgery team including DVT prophylaxis, pain management, PT/OT, and wound/dressing/drain management. Patient currently on DVT prophylaxis with SCDs. Order placed for morning CBC and CMP we will follow up on labs and replace abnormal values if indicated based upon these results. COPD with continued nicotine dependence -Patient placed on scheduled nebulizer treatments 3 times daily and as needed albuterol nebulizer treatments for shortness of breath and/or wheezing. -Patient counseled on smoking cessation. -Nicotine patch 21 mg daily. Hypertension -Patient with a history of hypertension and no longer antihypertensive medications. Blood pressures have been elevated 140s to 160s over 80s to 90s. Patient denies having any pain at this time. We will start patient on low-dose amlodipine 5 mg daily. Thank you for allowing us to participate in the care of this pleasant patient. Do not hesitate to contact us with questions. Someone can be reached from the [facility] group all hours of the day at [phone] or via [employer]. Patient was seen independently by Nurse Practitioner. This document was prepared using i[employer] dictation software. Please allow for errors in personnel analyst while rare they do occur. I reviewed the documentation as provided by the BUCK above, who is the original author of this note. I agree with the documented assessment and plan, with the following changes: none Past Medical History Past Medical History: COPD, GERD/Reflux, Hypertension, Musculoskeletal Disorder Additional Past Medical History / Comment(s): NOT TAKING MEDS FOR HYPERTENSION AND GERD. migraine headaches, numbness & tingling both arms & hands, pain up right side of neck into head History of Any Multi-Drug Resistant Organisms: None Reported Past Surgical History: No Surgical Hx Reported Additional Past Surgical History / Comment(s): 08/16/19 cervical fusion. pain procedures Past Anesthesia/Blood Transfusion Reactions: No Reported Reaction, Family History of Problems w/ Anesthesia Additional Past Anesthesia/Blood Transfusion Reaction / Comm: brother slow to wake up Past Psychological History: Anxiety Smoking Status: Current every day smoker Past Alcohol Use History: Rare Additional Past Alcohol Use History / Comment(s): 1ppd since teens Past Drug Use History: Marijuana Additional Drug Use History / Comment(s): occasional use - Past Family History Father Family Medical History: Cancer Medications and Allergies Home Medications Medication Instructions Recorded Confirmed Type Cyclobenzaprine [Flexeril] 5 mg PO HS 10/06/22 10/06/22 History Allergies Allergy/AdvReac Type Severity Reaction Status Date / Time No Known Allergies Allergy Verified 10/12/22 08:21 Physical Exam Osteopathic Statement: *. No significant issues noted on an osteopathic structural exam other than those noted in the History and Physical/Consult. Vitals: Vital Signs Temp Pulse Resp BP Pulse Ox 10/12/22 13:23 74 16 104/71 98 10/12/22 13:08 96.8 F L 56 L 16 99/52 97 10/12/22 08:23 98.0 F 77 16 126/77 100 Intake and Output 10/11/22 10/12/22 10/12/22 22:59 06:59 14:59 Intake Total 1252 Output Total 450 Balance 802 Intake: IV 1252 Output: Urine 300 Estimated Blood Loss 150 Other: Weight 76.8 kg
[2022-10-12] MEDS: HYDROmorphone 0.5 MG/0.5 ML SYRINGE IVP PRN ×4 (13:45→14:32)
--- NOTE | 2022-10-12 14:06 | XR ---
Intraoperative/procedural fluoroscopic services were provided for posterior cervical fusion. Total fl uoroscopy time is 1 minute with a total of 6 submitted images to PACS. Total DAP 3.1336 Gycm2. Charles jaime see the operative note for further details.
[2022-10-12] MEDS ORDERED: fentaNYL (PF) 50 MCG/ML 2 ML AMP IVP ONE (14:44)
[2022-10-12] MEDS ORDERED: IPRATROPIUM-ALBUTEROL 3 ML NEB INHALATION PRN (16:08)
[2022-10-12] MEDS: HYDROcodone/APAP 10-325MG 1 EACH TAB PO PRN (16:24)
[2022-10-12] MEDS: NICOTINE 21MG/24HR PATCH TRANSDERM SCH (16:25)
[2022-10-12] MEDS: ACETAMINOPHEN TAB 325 MG TAB PO SCH ×2 (17:41→23:18)
[2022-10-12] MEDS: IPRATROPIUM-ALBUTEROL 3 ML NEB INHALATION SCH (20:14)
[2022-10-12] MEDS: amLODIPine 5 MG TAB PO SCH (23:00)
[2022-10-12] MEDS: HYDROmorphone 1 MG/ML 1 ML SYRINGE IVP PRN (23:06)
[2022-10-13] MEDS: HYDROmorphone 1 MG/ML 1 ML SYRINGE IVP PRN (04:10)
[2022-10-13] MEDS ORDERED: ONDANSETRON 4 MG/2 ML VIAL IVP STA (04:21)
[2022-10-13] MEDS: ACETAMINOPHEN TAB 325 MG TAB PO SCH ×3 (06:21→17:30)
[2022-10-13] MEDS: IPRATROPIUM-ALBUTEROL 3 ML NEB INHALATION SCH ×3 (08:03→19:49)
[2022-10-13 09:11] LABS: BUN/Creat Ratio 10.33 Ratio (12.00-20.00); Blood Urea Nitrogen 9.3 mg/dL (9.0-27.0); Calcium 8.4 mg/dL (8.7-10.3); Carbon Dioxide 22.9 mmol/L (21.6-31.8); Chloride 94 mmol/L (96-109); Glucose 87 mg/dL (70-110); Magnesium 1.7 mg/dL (1.5-2.4); Potassium 3.6 mmol/L (3.5-5.5); Sodium 129 mmol/L (135-145)
[2022-10-13 09:13] LABS: HGB 14.3 d/dL (13.0-17.0); MCH 30.6 pg (27.0-32.0); MCHC 34.9 d/dL (32.0-37.0); MCV 87.8 FL (80.0-97.0); Mean Platelet Volume 9.9 FL (9.5-12.2); NRBC Per 100 WBC 0 X 10*3/uL (0.00-0.01); Platelet Count 276 X 10*3/uL (140-440); RBC 4.67 X 10*6/uL (4.40-5.60); RDW 13.3 % (11.5-14.5); WBC 21.44 X 10*3/uL (4.50-10.00)
--- NOTE | 2022-10-13 09:22 | CT ---
EXAMINATION TYPE: CT cervical spine wo con CT DLP: 472.7 mGycm, Automated exposure control for dose reduction was used. DATE OF EXAM: 10/13/2022 8:12 AM COMPARISON: 10/09/2022.. CLINICAL INDICATION:Male, 47 years old with history of s/p c2-t1 decompression fusion; PHH, post surg ical fusion TECHNIQUE: Axial CT images from the skull base to the inferior aspect of T2 we obtained without intra venous contrast. Coronal and sagittal reformatted images were also reviewed. Contrast used: mL of , (if blank None) Oral contrast used: (if blank None) FINDINGS: Postsurgical changes with hardware extending from C2 to T1 posteriorly. There is fixation hardware an teriorly extending from C3 through C5. All hardware appears intact. There is subcutaneous lucencies p osteriorly compatible with recent surgery. No evidence for fracture. No evidence for significant spin al canal or neural foraminal stenosis. Mild paraseptal emphysema changes in lung apices. Drainage tub ing distal tip terminates in the surgical bed more superiorly. IMPRESSION: Postsurgical change without immediate postop competition.
[2022-10-13] MEDS: NICOTINE 21MG/24HR PATCH TRANSDERM SCH (09:37)
[2022-10-13] MEDS: PANTOPRAZOLE 40 MG TABLET PO SCH (09:37)
[2022-10-13] MEDS: amLODIPine 5 MG TAB PO SCH (09:37)
[2022-10-13] MEDS: LACTATED RINGERS 1,000 ML IV SCH (09:37)
[2022-10-13] MEDS: CYCLOBENZAPRINE 5 MG TAB PO PRN ×2 (09:40→16:51)
[2022-10-13] MEDS: traMADol 50 MG TAB PO PRN (11:23)
[2022-10-13 11:26] LABS: Basophils # (A) 0.05 X 10*3/uL (0.00-0.10); Basophils % (A) 0.2 %; Eosinophils # (A) 0.04 X 10*3/uL (0.04-0.35); Eosinophils % (A) 0.2 %; Lymphocytes # (A) 1.89 X 10*3/uL (0.90-5.00); Lymphocytes % (A) 8.8 %; Monocytes # (A) 1.97 X 10*3/uL (0.20-1.00); Monocytes % (A) 9.2 %; Neutrophils # (A) 17.38 X 10*3/uL (1.80-7.70); Neutrophils % (A) 81.1 %; RBC Morphology Normal (Normal)
--- NOTE | 2022-10-13 15:14 | P.PN ---
Subjective Progress Note Date: 10/13/22 Principal diagnosis: 1. C2-3, C5-6, C6-7 SPONDYLOSIS, ADJACENT SEGMENT DISEASE S/P C3-5 ACDF 2. CERVICAL STENOSIS, MODERATE TO SEVERE 3. B/L UE RADICULOPATHY AND WEAKNESS 4. NECK PAIN Patient was seen at bedside this morning sitting up in chair with hard cervical collar in place. Patient says he got up with physical therapy earlier this morning and walked around the room and out to the hallway. Patient says he has urinated several times since surgery yesterday. Patient denies any significant numbness/tingling down the extremities at this time. Patient says his has been very helpful since surgery was performed yesterday. Patient says the pain is controlled okay with medication. Patient denies any other changes at this time. Patient says he has not had bowel movement yet, however, patient says he has been passing gas. Patient denies chest pain, fever, shortness breath, nausea, vomiting, change in vision, loss of bowel/bladder control. Objective - Vital Signs Vital signs: Vital Signs Temp 98.9 F 10/13/22 12:36 Pulse 87 10/13/22 12:36 Resp 16 10/13/22 12:36 BP 154/81 10/13/22 12:36 Pulse Ox 96 10/13/22 12:36 FiO2 Intake & Output 10/12/22 10/13/22 10/13/22 18:59 06:59 18:59 Intake Total 1252 Output Total 1195 1040 40 Balance 57 -1040 -40 Weight 76.8 kg Intake: IV 1252 Output: Drainage 40 40 40 Left Posterior Neck 40 40 40 Urine 1005 1000 Uretheral (Tineo) 155 Stool 0 Estimated Blood Loss 150 Other: # Voids 2 # Bowel Movements 0 # Emeses 0 - Exam Hard cervical collar in place. Drain is intact with serosanguineous output. Maintain drain at this time. Drain moved from suction to gravity. There doesn't. Recent saturation over the incision dressing. New dressing was placed over incision. Glen appear to be well aligned and incision healing well at this time. Negative for any active drainage. Negative for any fluctuance/purulence. Sensation is equal, symmetric, bilaterally intact. There is some bare amount of tenderness to patient diffusely throughout the incision on the posterior cervical spine. Nontender to palpation throughout rest exam. Patient does have some Limited Range of motion the bilateral shoulder secondary to referred pain in the neck. Patient has full range of motion throughout rest of the upper and lower extremities on exam. 4+/5 in all major motor groups. Radial pulses intact, 2+. Cap refill under 3 seconds in digits upper extremities - Labs CBC & Chem 7: 10/13/22 05:20 10/13/22 05:20 Labs: Abnormal Lab Results - Last 24 Hours (Table) 10/13/22 10/13/22 Range/Units 05:20 05:20 WBC 21.44 H (4.50-10.00) X 10*3/uL Neutrophils # 17.38 H (1.80-7.70) X 10*3/uL Monocytes # 1.97 H (0.20-1.00) X 10*3/uL Sodium 129 L (135-145) mmol/L Chloride 94 L (96-109) mmol/L Anion Gap 12.10 H (4.00-12.00) mmol/L BUN/Creatinine Ratio 10.33 L (12.00-20.00) Ratio Calcium 8.4 L (8.7-10.3) mg/dL Assessment and Plan Assessment: 1. C2-3, C5-6, C6-7 SPONDYLOSIS, ADJACENT SEGMENT DISEASE S/P C3-5 ACDF 2. CERVICAL STENOSIS, MODERATE TO SEVERE 3. B/L UE RADICULOPATHY AND WEAKNESS 4. NECK PAIN Postoperative day #1 status post - C2-T1 POSTERIOLATERAL STABILIZED FUSION Plan: 1. C2-3, C5-6, C6-7 SPONDYLOSIS, ADJACENT SEGMENT DISEASE S/P C3-5 ACDF; CERVICAL STENOSIS, MODERATE TO SEVERE' B/L UE RADICULOPATHY AND WEAKNESS; NECK PAIN - surgery performed yesterday, 10/12/2022 - C2-T1 POSTERIOLATERAL STABILIZED FUSION. Patient stable at bedside this morning with hard c-collar in place. Patient had about 120 mL output over the past 12 hours. We'll maintain drain at this time. Surgical dressing was changed this morning at bedside. Pain medication as needed. Heart c-collar on at all times. Plan for discharge home tomorrow with health services. 2. Appreciate medical management 3. Pain management - Tylenol; [place]; tramadol; Flexeril 4. DVT prophylaxis - mechanical 5. GI prophylaxis - senna 6. PT/OT - weightbearing as tolerated with walker. Hard c-collar on at all times 7. Encourage incentive spirometer use 8. Discharge planning - plan for discharge home tomorrow Time with Patient: Less than 30
--- NOTE | 2022-10-13 16:41 | P.PN ---
Subjective Progress Note Date: 10/13/22 Hospital course: Patient is a very pleasant 47-year-old male with a past medical history of hypertension (no longer on any medications), COPD with continued nicotine dependence, GERD, cannabinoid use disorder, and osteoarthritis. He is currently admitted under orthospine surgery team with Dr. Hwang status post elective C2 through T12 posterior cervical decompression and fusion completed on 10/12/22. We were consulted for medical management throughout patient's hospitalization. Physical exam: Patient was seen and fully evaluated at bedside this morning. He was sitting up in bed visiting with at bedside. Patient reports at the moment postoperative pain is controlled, reports earlier bout of coughing from his chronic "smoker's cough" in which he reports significant pain. Patient currently reports pain is controlled. Hard c-collar remains in place. JEAN-PIERRE drain also remains in place. Patient continues to deny having any numbness/tingling/weakness in his extremities. He denies difficulty swallowing and denies any chest pain or shortness of breath. Vital signs reviewed and stable. General: Nontoxic, no distress and appears stated age. Derm: Skin warm and dry, normal coloration for ethnicity. Head: Atraumatic, normocephalic and symmetric. Hard cervical collar in place along with JEAN-PIERRE drain. Eyes: EOMs intact, no lid lag, and anicteric sclera Mouth: no lip lesions, mucus membranes moist Cardiovascular: regular rate and rhythm with normal S1S2, no murmur, positive posterior tibial pulses bilaterally, and cap refill < 2 seconds. Lungs: Respirations even, regular, and unlabored on room air. Lungs slightly diminished bilaterally. No wheezes, no rhonchi, no rales, no crackles. No accessory muscle usage. Abdominal: soft, nontender to palpation, no guarding, no appreciable organomegaly Ext: ROM intact. No gross muscle atrophy, no edema, no contractures Neuro: Speech clear, face symmetrical and CN II-XII grossly intact with no noted focal neuro deficits Psych: Alert and oriented to person, place, time, and situation. Appropriate and pleasant affect. Assessment and Plan of Care: Lactic acidosis Hypochloremic Hyponatremia Postoperative leukocytosis, suspect reactive as are no signs of infection at this time -Lactic acidosis with chloride of 94, bicarb 22.9, and anion gap of 12.10. -Leukocytosis with postoperative WBC count of 21.44. No preoperative labs are available for comparison. -Order placed for IV fluid hydration with 0.9% normal saline at 125 mL per hour -We will repeat morning labs to follow-up for improvement/resolution of lactic acidosis and postoperative leukocytosis. Hypomagnesemia -Magnesium 1.7, orders placed for magnesium sulfate 2 g IVPB 1 dose. -Order placed for repeat magnesium levels tomorrow morning to monitor for resolution. We will continue to replace any abnormal electrolyte values as indicated based upon these results. Status post C2 through T12 posterior cervical decompression and fusion Management per primary admitting orthospine surgery team including DVT prophylaxis, pain management, PT/OT, and wound/dressing/drain management. Patient currently on DVT prophylaxis with SCDs. Postoperative labs reviewed. CBC showing leukocytosis with WBC count of 21.44 and postoperative hemoglobin stable at 14.3. BMP revealing hyponatremia with sodium 129. COPD with continued nicotine dependence -Patient placed on scheduled nebulizer treatments 3 times daily and as needed albuterol nebulizer treatments for shortness of breath and/or wheezing. -Patient counseled on smoking cessation. -Nicotine patch 21 mg daily. Hypertension -Patient with a history of hypertension and no longer antihypertensive medications. Blood pressures were elevated during hospitalization 160s 170s systolic and patient denied any pain or complaints. Patient was started on amlodipine 5 mg daily. Blood pressures improved ranging from 140s to 150s systolic since initiation of medication. -Current vital signs reviewed and stable. Blood pressure 155/85, heart rate 86, respiratory rate 18, temp 97.8F, and SpO2 of 99% on room air. Thank you for allowing us to participate in the care of this pleasant patient. Do not hesitate to contact us with questions. Someone can be reached from the [facility] hospitalist group all hours of the day at [phone] or via [employer] serve. Patient was seen independently by Nurse Practitioner. This document was prepared using [employer] dictation software. Please allow for errors in reconciliation analyst while rare they do occur. I reviewed the documentation as provided by the BUCK above, who is the original author of this note. I agree with the documented assessment and plan, with the following changes: none Objective - Vital Signs Vital signs: Vital Signs Temp 97.8 F 10/13/22 08:00 Pulse 86 10/13/22 08:00 Resp 18 10/13/22 08:00 BP 155/85 10/13/22 08:00 Pulse Ox 99 10/13/22 08:00 FiO2 Intake & Output 10/12/22 10/13/22 10/13/22 18:59 06:59 18:59 Intake Total 1252 Output Total 1195 1040 Balance 57 -1040 Weight 76.8 kg Intake: IV 1252 Output: Drainage 40 40 Left Posterior Neck 40 40 Urine 1005 1000 Uretheral (Tineo) 155 Stool 0 Estimated Blood Loss 150 Other: # Voids 2 # Bowel Movements 0 # Emeses 0 - Labs CBC & Chem 7: 10/14/22 05:24 10/14/22 05:24
[2022-10-13] MEDS: HYDROcodone/APAP 10-325MG 1 EACH TAB PO PRN ×2 (16:51→22:18)
[2022-10-13] MEDS: MAGNESIUM SULFATE-D5W PMX 1 GM in DEXTROSE/WATER 1 100ML.BAG IVPB SCH ×2 (16:51→18:19)
[2022-10-13] MEDS: SODIUM CHLORIDE 0.9% 1,000 ML IV SCH (16:51)
[2022-10-14] MEDS: HYDROcodone/APAP 10-325MG 1 EACH TAB PO PRN ×2 (01:54→06:54)
[2022-10-14] MEDS: ACETAMINOPHEN TAB 325 MG TAB PO SCH ×3 (01:55→11:46)
[2022-10-14] MEDS: SODIUM CHLORIDE 0.9% 1,000 ML IV SCH (01:57)
[2022-10-14 06:34] LABS: HCT 44.4 % (39.0-53.0); HGB 15.3 gm/dL (13.0-17.5); MCHC 34.4 g/dL (31.0-37.0); Mean Platelet Volume 7.9; Platelet Count 226 k/uL (150-450); RBC 4.94 m/uL (4.30-5.90); RDW 13.4 % (11.5-15.5); WBC 18.6 k/uL (3.8-10.6)
[2022-10-14 06:55] LABS: ALT 21 U/L (4-49); AST 39 U/L (17-59); African American GFR (CKD) >90 (>60 ml/min/1.73 sqM); Albumin 3.4 g/dL (3.5-5.0); Albumin/Globulin Ratio 1.2; Alkaline Phosphatase 74 U/L (38-126); Anion Gap 7 mmol/L; Blood Urea Nitrogen 6 mg/dL (9-20); Calcium 8.2 mg/dL (8.4-10.2); Carbon Dioxide 24 mmol/L (22-30); Chloride 102 mmol/L (98-107); Globulin 2.8 g/dL; Glucose 100 mg/dL (74-99); Magnesium 2.3 mg/dL (1.6-2.3); Non-African American GFR(CKD) >90 (>60 ml/min/1.73 sqM); Sodium 133 mmol/L (137-145); Total Bilirubin 0.8 mg/dL (0.2-1.3); Total Protein 6.2 g/dL (6.3-8.2)
[2022-10-14 07:52] VITALS: BP 143/88; RESP 16; TEMP 99.6
[2022-10-14] MEDS: PANTOPRAZOLE 40 MG TABLET PO SCH (08:37)
[2022-10-14] MEDS: traMADol 50 MG TAB PO PRN (08:37)
[2022-10-14] MEDS: CYCLOBENZAPRINE 5 MG TAB PO PRN (08:37)
[2022-10-14] MEDS: amLODIPine 5 MG TAB PO SCH (08:37)
--- NOTE | 2022-10-14 08:40 | P.PN ---
Subjective Progress Note Date: 10/14/22 Principal diagnosis: 1. C2-T2 spondylosis and stenosis 2. 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 Possible pseudoarthrosis 4. Cervical myelopathy 5. S/P C3-5 ACDF Patient seen and examined this morning. Patient is resting completely in bed. Surgical incision to the posterior cervical spine is clean dry and intact with JEAN-PIERRE drain present, 80 mL output overnight. Patient reports that his pain is managed on current regimen. Patient states he is looking forward to physical therapy this morning. JEAN-PIERRE drain will be discontinued later this morning. Patient states he feels comfortable with going home today with spouse, no acute concerns. Discharge instructions have been discussed. Objective - Vital Signs Vital signs: Vital Signs Temp 99.6 F 10/14/22 07:14 Pulse 90 10/14/22 07:14 Resp 16 10/14/22 07:14 BP 143/88 10/14/22 07:14 Pulse Ox 94 L 10/14/22 07:14 FiO2 Intake & Output 10/13/22 10/14/22 10/14/22 18:59 06:59 18:59 Intake Total 325 Output Total 40 80 Balance 285 -80 Intake: Intake, IV Titration 325 Amount Magnesium Sulfate-D5w Pmx 200 1 gm In Dextrose/Water 1 100ml.bag @ 100 mls/hr IVPB Q1H ARMIN Rx#: [id number] Sodium Chloride 0.9% 1, 125 000 ml @ 125 mls/hr IV . Q8H ARMIN Rx#:[id number] Output: Drainage 40 80 Left Posterior Neck 40 80 Stool 0 Other: # Bowel Movements 0 # Emeses 0 - Exam Physical Examination General: The patient is awake and alert, in no acute distress Skin: Skin is warm and dry with no obvious rashes or lesions. Surgical incision to the posterior cervical spine, dressing is clean dry and intact. JEAN-PIERRE drain is present with 80 mL output overnight Eye: Pupils are equal, round and reactive to light, extra-ocular movements are intact; there is normal conjunctiva bilaterally. Neck: The neck is supple, there is no tenderness and ROM intact. Cardiovascular: There is a regular rate and rhythm. No murmur, rub or gallop is appreciated. Respiratory: Lungs are clear to auscultation, respirations are non-labored, breath sounds are equal. Gastrointestinal: Soft, non-distended, non-tender abdomen. Back: There is no tenderness to palpation in the midline, paralumbar, parathoracic or buttocks region. There is no obvious deformity . Musculoskeletal: ROM limited secondary to pain and stiffness from surgical procedure. Muscle strength in all major muscle groups of bilateral upper extremities 4/5, bilateral lower extremities 5/5. Neurological: CN 2-12 intact. There are no obvious motor or sensory deficits. Movement and coordination equal and intact. Sensory exam to light touch intact C5-T1 and intact from L2-S1. Reflexes 2/4 in bilateral upper and lower extremities. Negative Hoffmans, babinski, and clonus signs. Psychiatric: Cooperative, appropriate mood & affect, normal judgment. - Labs CBC & Chem 7: 10/14/22 05:24 10/14/22 05:24 Labs: Abnormal Lab Results - Last 24 Hours (Table) 10/13/22 10/13/22 10/14/22 Range/Units 05:20 05:20 05:24 WBC 21.44 H 18.6 H (4.50-10.00) X 10*3/uL Neutrophils # 17.38 H (1.80-7.70) X 10*3/uL Monocytes # 1.97 H (0.20-1.00) X 10*3/uL Sodium 129 L (135-145) mmol/L Chloride 94 L (96-109) mmol/L Anion Gap 12.10 H (4.00-12.00) mmol/L BUN (9-20) mg/dL BUN/Creatinine Ratio 10.33 L (12.00-20.00) Ratio Glucose (74-99) mg/dL Calcium 8.4 L (8.7-10.3) mg/dL Total Protein (6.3-8.2) g/dL Albumin (3.5-5.0) g/dL 10/14/22 Range/Units 05:24 WBC (4.50-10.00) X 10*3/uL Neutrophils # (1.80-7.70) X 10*3/uL Monocytes # (0.20-1.00) X 10*3/uL Sodium 133 L (135-145) mmol/L Chloride (96-109) mmol/L Anion Gap (4.00-12.00) mmol/L BUN 6 L (9-20) mg/dL BUN/Creatinine Ratio (12.00-20.00) Ratio Glucose 100 H (74-99) mg/dL Calcium 8.2 L (8.7-10.3) mg/dL Total Protein 6.2 L (6.3-8.2) g/dL Albumin 3.4 L (3.5-5.0) g/dL Assessment and Plan Assessment: Postop day 2: C2-T2 posterior decompression and fusion 1. C2-T2 spondylosis and stenosis 2. 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 Possible pseudoarthrosis 4. Cervical myelopathy 5. S/P C3-5 ACDF Plan: -Appreciate warehouse consultant and team management. -Activity: Ambulate QID, OOB all meals, up and about, limit lifting bending twisting to less than 5 lbs. Use walker or cane if needed for stability. -Daily PT/OT, increase ambulation strength and balance. -Hard cervical collar when up and about, may take breaks in bed or chair -Pain control: Adequate at this time -Meds: reviewed -GI ppx: senna, Miralax -DVT PPX: Heparin -Hygiene: Shower today. Maintain dressing clean and dry. -Drains: Maintain for now. DC later today -Encourage IS 10x/hr -Dispo: Anticipate discharge home today with homecare *I reviewed and discussed this case with my attending Dr. Hwang, whom has reviewed this chart and films and is in agreement with assessment and plan of care as outlined above. I have personally seen and examined the patient, performed the documentation and the assessment and plan as written. Number of minutes spent on the visit: 20m
[2022-10-14] MEDS: NICOTINE 21MG/24HR PATCH TRANSDERM SCH (08:41)
[2022-10-14] MEDS: IPRATROPIUM-ALBUTEROL 3 ML NEB INHALATION SCH (08:48)
[2022-10-14 08:53] VITALS: PULSE 92
--- NOTE | 2022-10-14 09:35 | P.DS ---
Providers Date of admission: 10/12/22 07:40 Expected date of discharge: 10/14/22 Attending physician: Selvin Hwang DO Consults: 10/12/22 13:16 Consult Physician Routine Consulting Provider: Shyann Mariscal Consult Reason/Comments: medical management s/p c2-t1 decompresion fusion Do you want consulting provider notified?: Yes Primary care physician: Sean Gr Hospital Course: Hospital Course: The patient was evaluated preoperatively and found to have the diagnosis of adjacent segment disease, cervical spondylosis with stenosis. They underwent appropriate preoperative care and were willing to undergo the intended procedure. They underwent a successful C2-T2 posterior decompression and fusion, were recovered appropriately and sent to the floor. While on the floor they worked with physical therapy, occupational therapy and nursing to enhance their recovery experience. Their pain was well controlled through their stay and they were started on appropriate medications, DVT ppx modalities, activity and dietary needs. Daily labs were monitored closely, and transfusions were only used when necessary. Medicine as well as other consulting services have made their input and have helped with our team approach and multidisciplinary care. PT milestones have been met and passed and they have made the recommendation of home for this patient and treating providers agree with this care path. The patient will be discharged home with appropriate medications, instructions and follow-up information and in stable condition. Patient Condition at Discharge: Good Plan - Discharge Summary Discharge Rx Participant: No New Discharge Prescriptions: New Cyclobenzaprine [Flexeril] 5 mg PO TID PRN #60 tablet PRN Reason: Muscle Spasm HYDROcodone/APAP 10-325MG [[place] 10-325] 1 tab PO Q4-6H PRN #42 tab PRN Reason: Pain cefaDROXiL [Duricef] 500 mg PO Q12HR 5 Days #10 cap Sennosides/Docusate Sodium [Senna Plus 8.6-50 mg Softgel] 1 each PO DAILY PRN #20 capsule PRN Reason: Constipation No Action Cyclobenzaprine [Flexeril] 5 mg PO HS Discharge Medication List Cyclobenzaprine [Flexeril] 5 mg PO HS 10/06/22 [History] Cyclobenzaprine [Flexeril] 5 mg PO TID PRN #60 tablet 10/14/22 [Rx] HYDROcodone/APAP 10-325MG [[place] 10-325] 1 tab PO Q4-6H PRN #42 tab 10/14/22 [Rx] Sennosides/Docusate Sodium [Senna Plus 8.6-50 mg Softgel] 1 each PO DAILY PRN #20 capsule 10/14/22 [Rx] cefaDROXiL [Duricef] 500 mg PO Q12HR 5 Days #10 cap 10/14/22 [Rx] Follow up Appointment(s)/Referral(s): Selvin Hwang DO [Doctor of Osteopathic Medicine] - 2 Weeks Sean Gr DO [Primary Care Provider] - 1 Week Activity/Diet/Wound Care/Special Instructions: Spine Discharge and Recovery Instructions Date of Surgery: 10/12/2022 Diagnosis: Adjacent segment disease, cervical spondylosis with stenosis Procedure: C2-T2 posterior decompression and fusion Medications: See medication list All medication refills should be obtained through your primary care doctor or your clinic spine surgeon. Please discuss prescription refills at your follow up appointment. Do not call the hospital for medication refills. Dressing: Leave your dressing in place for a total of 5 days post operatively. Then you may remove your dressing and leave open to air. Keep the area clean and if not able to keep area clean, then cover with sterile gauze and tape. Showering: You may shower 3 days after your procedure allowing soap and water to run over incision. Do not scrub. Do not soak. Blot dry. Follow up: Please confirm a follow up appointment with your surgeon 3 weeks post operatively. Please make an appointment to follow up with your PCP in 1-2 weeks after surgery for evaluation 3 phase, 3-week plan POST OP WEEKS 1-3 1. Lifting/carrying/pushing/pulling limited to less than 5 pounds. 2. Do not sit for longer than 15 minutes at one time. Get up and walk around. Prolonged sitting is NOT advised. If you lay down, see if you can tolerate laying down on you front (belly side) 3. Walk for periods of 15 minutes = 1 mile but no longer; do it multiple times times each day. 4. Ice your low back after activity. POST OP WEEKS 3-6 1. Lifting limited to less than 20 pounds. 2. Do not sit for longer than 30 minutes at a time. Frequently change positions. Use a sit-to stand workstation or take frequent breaks from sitting if you have returned to work. 3. Walk for 30 minutes each day. If possible, do these three or more times a day POST OP WEEKS 6+ At your 6-week appointment we will give you a physical therapy referral to focus on a core stabilization and strengthening program. You should also work on leg & buttock strengthening, hamstring & quadriceps stretching, and continue a low impact aerobic activity program such as swimming, walking, or riding a stationary bicycle. During the initial 6 weeks after your surgery, you are at the highest risk of re-injuring your spine. You should generally avoid BLTs (bending, lifting and twisting combination motions) and follow the above guidelines to reduce the chance of reinjury. You can anticipate post op appointments in our office at approximately 3 weeks and 6 weeks after your surgery. INCISION CARE: If your incision is not draining you do NOT need to cover it with a dressing. Keep your incision clean, dry and intact. In most cases, we apply skin glue, jay or sutures to the incision at the time of surgery. This will be like a crust or have the appearance of a scab and will fall off in time on its own. The stitches or jay need to be removed at 3 weeks post op appointment. You may begin to shower 3 days after surgery (this allows the glue to benítez well). However, please avoid scrubbing the incision site or peeling off any of the skin glue. This will ensure optimal healing of your incision. Also, during this time avoid soaking the incision area in water - this includes swimming pools, hot tubs or baths. No ointments, lotions or oils on the incision until your surgeon allows. Leave jay, sutures or glue in place. Neurological dysfunction that comes on suddenly can also be a sign of a stroke. Below some common symptoms of a stroke are listed: B - balance difficulty such as sudden onset walking or leaning to one side - NEW E - eye problem such as sudden double vision or trouble seeing on one side - NEW F - Facial weakness or numbness on one side - NEW A - Arm or leg weakness or numbness on one side - NEW S - Slurred speech or difficulty with word finding - NEW T - Time is BRAIN! Call 911 as soon as you recognize these symptoms Diet: Consume a regular diet rich in vegetables and lean protein such as chicken or fish. You should consume in a ratio of approximately 20% fats|40% carbohydrates|40%protein. Vegetables, sweet potatoes, brown rice or quinoa are examples of good carbohydrates. Chips, white bread, cookies and sweets/sugar are examples of bad carbohydrates. Limit your bad carbs, go wild with good carbs. "Life's Simple 7" Guidelines as per [place] [employer] These will help you reclaim your life after surgery and family helper in your recovery, keeping in mind your restrictions. (1) Get Active. Physical activity can help people lose weight, control high blood pressure and cholesterol, feel emotionally better, and sleep better. (2) Control Cholesterol. Avoid a diet high in saturated fat, trans fat, & cholesterol. Limit whole milk & cream, ice cream, butter, egg yolks, processed meats (like sausage and hot dogs), and fatty meats. Choose healthy foods that are low in saturated fat, trans fat and cholesterol which include: Fruits and vegetables, fiber rich grain products (like whole grain pasta and brown rice), lean meat such as chicken, fish, nuts, seeds, and legumes. (3) Eat Better. Eat small portions. Shop at the grocery with a list and do not stray from it. Tips for a healthy diet include: Limit sodium intake to less than 1500mg daily, avoid prepackaged, processed, and fast foods, choose a diet rich in fruits, vegetables, and whole grain, high fiber foods, and limit saturated & cholesterol in your diet. (4) Manage Blood Pressure. If you have high blood pressure, you should have a cuff at home so that you can check your blood pressure regularly. Be sure you have a good cuff. An arm one is generally better than a wrist one. Bring the cuff to a doctor's appointment to validate that the measurements that your cuff are taking are accurate. Take your blood pressure twice daily when you are sitting down and relaxing. Record the numbers in a log and bring this log with you to your doctors' appointments. (5) Lose Weight if your BMI is above 25. A healthy BMI is between 19-25. To calculate Your BMI, you may use a Standard BMI Calculator on the NIH BMI website: <www.nhlbi.nih.gov/guidelines/obesity/BMI/bmicalc.htm>. Weigh oneself daily. If you are overweight, set a goal to lose weight. A pound a week loss if needed is a good target. (6) Reduce Blood Sugar. Limit foods and liquids with "added sugars." (Added sugars include sucrose, fructose, glucose, maltose, dextrose, high fructose corn syrup, corn syrup, concentrated fruit juice and honey). (7) Stop Smoking. If you smoke, quitting smoking is one of the best things that you can do for your health. Smoking increases your risk of heart attack, stroke, and peripheral vascular disease, which is a build-up of plaque in your arteries. Please discard all the cigarettes and lighters in your house. Have a plan for what you will do when you have the urge to smoke. Direct and second- hand smoke shortens your life as well as the lives of your family, friends and others around you. For your health and the health of those around you, please consider quitting! Proper Bending Body Mechanics: Maintain a wide stance with one foot slightly in front of the other. Keep your back straight. Bend utilizing the strength in your hips and knees. Do not bend at the waist. Maintain the lifted object at your waist-level close to your body. Avoid lifting weight that causes immediately pain or pain anywhere in the body afterwards. Smoking/Nicotine If there was ever one thing that you could do to increase your overall health, decrease your risk of cardiovascular problems by about 39% the second you make the choice, it is to STOP SMOKING. Your body's most instant gratification is the second you stop smoking. We have all heard the studies, read the articles but it is true, smoking is extremely bad for your overall health, and moreover it is detrimental to your bone health. Nicotine, IN ANY FORM, kills bone cells, prevents your body from healing fractures, and significantly prolongs healing after surgery. In spine surgery specifically, it increases your risk of not healing your bones to create a fusion and increases your risk of having a revision surgery due to this up to 60%. I know it is hard. I know it feels impossible. But there are ways. Take control of your life. We are here to help you through it. And when you are ready, ask us and we can direct you to help if you desire. Use the START Plan to Quit Smoking (please visit the [employer] website listed below for more information): S = Set a quit date. Choose a date within the next 2 weeks, so you have enough time to prepare without losing your motivation to quit. If you mainly smoke at work, quit on the weekend, so you have a few days to adjust to the change. T = Tell family, friends, and co-workers that you plan to quit. Let your friends and family in on your plan to quit smoking and tell them you need their support and encouragement to stop. Look for a quit diana who wants to stop smoking as well. You can help each other get through the rough times. A = Anticipate and plan for the challenges you'll face while quitting. Most people who begin smoking again do so within the first 3 months. You can help yourself make it through by preparing ahead for common challenges, such as nicotine withdrawal and cigarette cravings. R = Remove cigarettes and other tobacco products from your home, car, and work. Throw away all your cigarettes (no emergency pack!), lighters, ashtrays, and matches. Wash your clothes and freshen up anything that smells like smoke. Shampoo your car, clean your drapes and carpet, and steam your furniture. T = Talk to your doctor about getting help to quit. Your doctor can prescribe medication to help with withdrawal and suggest other alternatives. If you can't see a doctor, you can get many products over the counter at your local pharmacy or grocery store, including the nicotine patch, nicotine lozenges, and nicotine gum. Resources for Quitting Smoking: <https://www.[place].gov/documents/[facility]/Quit_Tobacco_Resources_for_patients_313 480_7.pdf> Supplementation: Take recommended dosages of Vitamin D and Calcium to help fortify your bones and help them to heal. See your health maintenance packet for dosages and recommended levels. DVT/VTE prophylaxis: You will be given compression stockings from the hospital. Wear these daily for the first two weeks after surgery. You may take them off at night. You may be prescribed a medication to help thin your blood. Take this as directed. If you are not prescribed this medication, early and frequent ambulation has been shown to be the best prophylaxis to deep vein thrombosis and sequelae related to this event. Discharge Disposition: HOME WITH HOME HEALTH SERVICES
--- NOTE | 2022-10-14 10:57 | P.PN ---
Subjective Progress Note Date: 10/14/22 (delayed charting seen at 0920) Patient is a 47-year-old male with COPD, nicotine dependency, and hypertension no longer requiring antihypertensive medications who presented for elective C2 through T12 posterior cervical decompression. He tolerated the procedure well without any immediate postoperative complications. Patient seen and examined at bedside. He states pain is better controlled today than yesterday. He denies any chest pain or shortness of breath. We discussed that he should continue using his incentive spirometer decreases chances of postoperative pneumonia and he is in agreement. He also had a prolonged discussion about his elevated blood pressures during his hospital stay, he was taken off all of his antihypertensive medications and he does have a blood pre ssure cuff at home. Vital signs reviewed General: nontoxic, no distress, appears at stated age, cervical collar in place Cardiovascular: S1S2 reg, no murmur, positive posterior tibial pulse bilateral, Lungs: CTA bilateral, no rhonchi, no rales , no accessory muscle use Ext: no gross muscle atrophy, no edema b/l lower extremities, no contractures Neuro: CN II-XI grossly intact, no focal neuro deficits Psych: Alert, oriented, appropriate affect Assessment/Plan: 47-year-old male status post C2 to T2 posterior decompression and fusion Hypertension, not chronically on medications -Discontinue Norvasc as I suspect that his elevated blood pressures were secondary to pain and fluid shifts -Had a discussion with patient and his family members at bedside. He will check his blood pressure every other day at home and make a log for his primary care physician. If they continue to consistently be above 148 have asked for him to restart blood pressure medications. Leukocytosis -Suspect reactive -No signs or symptoms of infection Hyponatremia, improved -Suspect secondary to fluid shifts, improved on repeat blood work -No need for repeat blood work Nicotine dependency - encouraged IS at home and instructions added to discharge to minimize chances of post-op PNA - cessation Chronic: GERD COPD without exacerbation Instructions added to discharge to have to check blood pressures and make a log as well as his bypass. Patient medically optimized for discharge of the discretion of orthopedic spine surgery. Data Review: T-max last 24 hours 99.6, blood pressures systolic ranging 138-155 in the last 24 hours. Diastolic ranging 81-90 Labs reviewed this morning and CBC shows a white blood cell count 18.6, sodium 133 Thank you for allowing us to participate in the care of this pleasant patient. Do not hesitate to contact us with questions. Someone can be reached from the [facility] hospitalist group all hours of the day at [phone] or via perfect serve. This dictation was prepared using [employer] voice recognition software. Though every attempt is made to correct errors during dictation some may still exist. Objective - Vital Signs Vital signs: Vital Signs Temp 99.6 F 10/14/22 07:14 Pulse 92 10/14/22 09:00 Resp 16 10/14/22 07:14 BP 143/88 10/14/22 07:14 Pulse Ox 94 L 10/14/22 07:14 FiO2 Intake & Output 10/13/22 10/14/22 10/14/22 18:59 06:59 18:59 Intake Total 325 Output Total 40 80 Balance 285 -80 Intake: Intake, IV Titration 325 Amount Magnesium Sulfate-D5w Pmx 200 1 gm In Dextrose/Water 1 100ml.bag @ 100 mls/hr IVPB Q1H ARMIN Rx#: [id number] Sodium Chloride 0.9% 1, 125 000 ml @ 125 mls/hr IV . Q8H ARMIN Rx#:[id number] Output: Drainage 40 80 Left Posterior Neck 40 80 Stool 0 Other: # Bowel Movements 0 # Emeses 0 - Labs CBC & Chem 7: 10/14/22 05:24 10/14/22 05:24 Labs: Abnormal Lab Results - Last 24 Hours (Table) 10/13/22 10/14/22 10/14/22 Range/Units 05:20 05:24 05:24 WBC 18.6 H (3.8-10.6) k/uL Neutrophils # 17.38 H (1.80-7.70) X 10*3/uL Monocytes # 1.97 H (0.20-1.00) X 10*3/uL Sodium 133 L (137-145) mmol/L BUN 6 L (9-20) mg/dL Glucose 100 H (74-99) mg/dL Calcium 8.2 L (8.4-10.2) mg/dL Total Protein 6.2 L (6.3-8.2) g/dL Albumin 3.4 L (3.5-5.0) g/dL
== END 2022-10-14 11:50 | disposition home health service (06) | DRG 472 ==
LOC: 2ORMAIN 07:40 → 5NMEDONC 13:35
PROVIDERS: ADMIT Orthopaedic Surgery; ATTEND Orthopaedic Surgery
PROC: 0RG40K1 Fusion of Cervicothoracic Vertebral Joint with Nonautologous Tissue Substitute, Posterior Approach, Posterior Column, Open Approach (ICD-10-PCS; principal; 2022-10-12 09:15)
PROC: 0RG20K1 Fusion of 2 or more Cervical Vertebral Joints with Nonautologous Tissue Substitute, Posterior Approach, Posterior Column, Open Approach (ICD-10-PCS; principal; 2022-10-12 09:15)
PROC: 4A11X4G Monitoring of Peripheral Nervous Electrical Activity, Intraoperative, External Approach (ICD-10-PCS; principal; 2022-10-12 09:15)
PROC: 00NW0ZZ Release Cervical Spinal Cord, Open Approach (ICD-10-PCS; principal; 2022-10-12 09:15)
PROC: 01N10ZZ Release Cervical Nerve, Open Approach (ICD-10-PCS; principal; 2022-10-12 09:15)
DX: M48.02 Spinal stenosis, cervical region (principal); E87.1 Hypo-osmolality and hyponatremia; M47.12 Other spondylosis with myelopathy, cervical region; M47.14 Other spondylosis with myelopathy, thoracic region; M54.12 Radiculopathy, cervical region; J44.9 Chronic obstructive pulmonary disease, unspecified; F41.9 Anxiety disorder, unspecified; D72.829 Elevated white blood cell count, unspecified; K21.9 Gastro-esophageal reflux disease without esophagitis; Z98.1 Arthrodesis status; I10 Essential (primary) hypertension; G43.909 Migraine, unspecified, not intractable, without status migrainosus; F12.10 Cannabis abuse, uncomplicated; F17.210 Nicotine dependence, cigarettes, uncomplicated
CPT/HCPCS: 72040; 72125; 80048; 80053; 83735; 85025; 85027; 86850; 86900; 86901; 87070; 94640

== ENCOUNTER → 2023-07-12 | Outpatient (CLI) | payer OTHER ==
--- NOTE | 2023-07-12 10:20 | CTL ---
EXAMINATION TYPE: CT Low Dose Lung DATE OF EXAM ORDERED: 07/12/2023 HISTORY: . Low Dose CT Lung Screening CT DLP: [address] CTDI: 2.3 mGy IV CONTRAST USED: None. SCREENING VISIT: First visit COMPARISON: None. TECHNIQUE: Low dose computed tomography scan was performed through the chest at 1 millimeter thick se ctions and reconstructed images in the coronal plane at [address] DIAGNOSTIC QUALITY: Satisfactory FINDINGS: LUNG NODULES: Scattered calcified granulomas identified. No solid uncalcified nodules greater than 5 mm visualized at this time. LUNGS: COPD: Severity: Mild with paraseptal emphysema seen mild in degree. Fibrosis: Severity:None Lymph nodes: None Other findings: None RIGHT PLEURAL SPACE: Effusion: None Calcification: None Thickening: None Pneumothorax: None LEFT PLEURAL SPACE: Effusion: None Calcification: None Thickening: None Pneumothorax: None HEART: Heart Size: Mildly enlarged Coronary calcification: Mild Pericardial effusion: None OTHER FINDINGS: Upper abdomen: No significant abnormality Bony thorax: Degenerative changes Supraclavicular region: No significant abnormalityOther: No significant abnormalityI IMPRESSION: Benign FOLLOW UP CT CHEST RECOMMENDATION: Follow-up screening in one year CT LUNG RAD: LUNG RAD CATEGORY 2 benign appearance in her behavior
== END | disposition home or self-care (01) ==
LOC: RADCTMAIN 09:37
PROVIDERS: ATTEND Internal Medicine Hematology & Oncology
DX: Z12.2 Encounter for screening for malignant neoplasm of respiratory organs (principal); F17.210 Nicotine dependence, cigarettes, uncomplicated
CPT/HCPCS: 71271

== ENCOUNTER → 2023-12-02 | Outpatient (CLI) | payer OTHER ==
[2023-12-02 11:13] VITALS: BP 148/88; PULSE 82; RESP 16; TEMP 97.7
--- NOTE | 2023-12-02 15:02 | P.PAINPG ---
PQRS Measure Charge Sheet Comment: HISTORY OF PRESENT ILLNESS: A 48 yr old male w at side as a referral from Dr Patel presents today w severe and chronic neck pain since 2019 secondary to C3-C5 ACDF w Hardware, C2-T1 PCDF for evaluation. Pt states pain level is provoked at 6 /10 in intensity, constant, localized in the cervicothoracic spine, predominantly axial, stabbing in character w occasional shooting pain up and down the spine. Pain is provoked by lifting. Pain is alleviated by PT integrated w massage x 6 wks which ended in May 2023, physician guided home exercises 4 times weekly since May 2023, medications (Tyl, Ibu), repositioning and rest . PMH: OA, COPD, GERD, HTN, Anxiety PSH: C3-C5 ACDF w Hardware (2019), C2-T1 PCDF (2022) SH: Daily tobacco use, Rare ETOH use, Cannabis use FH: Fa- CA All: See list Meds: See list REVIEW OF ORGAN SYSTEMS: CONSTITUTIONAL: No fevers or chills. No recent weight loss. NEUROLOGICAL: + numbness and tingling along the distal extremities. No seizure disorders or headaches. MUSCULOSKELETAL: + pain PSYCHIATRIC: Denies current depression or suicidal thoughts. Physical Examinations : Constitutional : Cooperative , not in acute distress . Neurologic : Cranial nerve II to XII intact. No focal neurological deficits. Psychiatric : alert & oriented x 3. Matching mood & appropriate affect. Judgment & insight intact. Musculoskeletal : Cervical Spine C2-T1 incisional scar intact Motor strength in the deltoid and biceps: Normal right side. Normal Left side Motor strength biceps and the wrist extensors: Normal right side . Normal left side Motor strength in the triceps muscle: Normal right side. Normal left side Deep tendon reflexes: Normal at the biceps. Normal at Brachioradialis. Normal at triceps Vertebral body tenderness to deep palpation over Cervical facet loading test: positive bilaterally Spurling test: positive bilaterally Neck distraction test: positive bilaterally Yves sign: positive bilaterally Thoracic spine Vertebral body TTP over T2 Allison test positive BL T1-T2 Lumbar spine Motor strength lower extremities ,thigh and legs 5/5 Right side , 5/5 Left side Deep tendon reflexes : Normal Knee Jerk. Normal Ankle Jerk Vertebral body tenderness over Allison Test positive Lumbar facet Loading Test: positive Right / positive Left Range of motion of the lumbar spine Flexion 30 degrees, extension 10 degrees Straight Leg Raise test: Left/ Right positive at degrees Amberly test: positive right / positive left. Severe tenderness over the Sacroiliac joint on the Right / Left sides Gaenslen test: positive bilaterally Seated flexion test: positive bilaterally. Sacral spine : Severe tenderness over the Sacroiliac joint: right side / left side Range of motion: Flexion of the lumbar spine <60 degrees Range of motion: Extension of the lumbar spine <20 degrees Gaenslen's Test positive Amberly test: positive right side / left side Thigh Thrust Test Sacral Thrust Test Imaging: CT non contrast cervical spine from 10/13/22 reviewed Assessment/ Plan : C3-C5 ACDF w Hardware, C2-T1 PCDF, Thoracic radiculopathy Recommendation of TESI T1-T2 #1. Risks, benefits of procedure discussed and patient verbalized understanding. Admits to anti- coagulant use or medical history of diabetes. Protocol for discontinuation/ continuation of medications mayelin procedure discussed. All questions answered. I have spent greater than 30 minutes on patient care today. Dr Mendez was available by phone for the evaluation of this patient. The time was used to review the medical records including relevant urine studies and Prescription history (MAPs), review of the available imaging, evaluation and examination of the patient, coordination of care with the medical staff and if applicable referring physicians, as well as creation of the medical record PQRS Narrative: Smoking Status Current every day smoker Home Medications: Ambulatory Orders Cyclobenzaprine [Flexeril] 5 mg PO HS 10/06/22 Cyclobenzaprine [Flexeril] 5 mg PO TID PRN #60 tablet 10/14/22 HYDROcodone/APAP 10-325MG [[place] 10-325] 1 tab PO Q4-6H PRN #42 tab 10/14/22 Sennosides/Docusate Sodium [Senna Plus 8.6-50 mg Softgel] 1 each PO DAILY PRN #20 capsule 10/14/22 cefaDROXiL [Duricef] 500 mg PO Q12HR 5 Days #10 cap 10/14/22 Controlled Substance Measures - Controlled Substance Measures Is patient prescribed a controlled substance at discharge?: No
== END ==
LOC: PNWHC3 10:27
PROVIDERS: ATTEND Specialist
DX: M54.2 Cervicalgia (principal); M54.14 Radiculopathy, thoracic region; M43.23 Fusion of spine, cervicothoracic region; F17.200 Nicotine dependence, unspecified, uncomplicated
CPT/HCPCS: 99211